=== PATIENT | male | born 1930 | race Caucasian/White ===

== ENCOUNTER 2018-04-10 10:06 | Inpatient (IN) | payer MEDICARE, OTHER ==
[~2018-04-10] VITALS: Ht 180.3 cm; Wt 84.8 kg
[~2018-04-10 10:06] MED LIST: APIX5TAB3 PO; ASPI-611 PO; ATOR40TA71 PO; DILT30TA34 PO; MAGN400T6 PO; METF-437 PO; POTA20TA10 PO; PYRI60TA PO; VIT1CAPS46 PO
[2018-04-10] MEDS ORDERED: aspirin 81mg tab.chew PO ONE (10:35)
[2018-04-10 10:55] LABS: BASOPHILS # (AUTO) 0.1 X10'3 (0-0.2); BASOPHILS % (AUTO) 1.9 % (0-1); EOSINOPHILS # (AUTO) 0.2 X10'3 (0-0.9); HEMATOCRIT 40.1 % (42.0-52.0); HEMOGLOBIN 13.5 g/dl (14.0-17.9); LYMPHOCYTES # (AUTO) 0.7 X10'3 (1.1-4.8); LYMPHOCYTES % (AUTO) 12.2 % (21-51); MEAN CORPUSCULAR HEMOGLOBIN 31.9 PG (27.0-31.0); MEAN CORPUSCULAR HGB CONC 33.6 % (33.0-36.5); MEAN CORPUSCULAR VOLUME 94.9 FL (78-98); MEAN PLATELET VOLUME 7.9 FL (7.4-10.4); MONOCYTES # (AUTO) 0.4 X10'3 (0-0.9); MONOCYTES % (AUTO) 7.3 % (2-12); NEUTROPHILS # (AUTO) 4.5 X10'3 (1.8-7.7); NEUTROPHILS % (AUTO) 75.6 % (42-75); PLATELET COUNT 220 X10'3 (140-440); RED BLOOD COUNT 4.22 X10'6 (4.70-6.10); RED CELL DISTRIBUTION WIDTH 12.9 % (11.5-14.5); WHITE BLOOD COUNT 5.9 X10'3 (4.5-11.0)
[2018-04-10 11:07] LABS: INR 1.1 INR; PROTHROMBIN TIME 11.4 SECONDS (9.0-12.0)
[2018-04-10 11:17] LABS: ALANINE AMINOTRANSFERASE 30 U/L (12-78); ALBUMIN 3.7 G/DL (3.4-5.0); ALBUMIN/GLOBULIN RATIO 1.4 (1.1-1.5); ALKALINE PHOSPHATASE 73 IU/L (46-116); ANION GAP 13 (8-16); ASPARTATE AMINO TRANSFERASE 17 U/L (10-37); BLOOD UREA NITROGEN 10 MG/DL (7-18); BUN/CREATININE RATIO 11.1 (5.4-32.0); CALCIUM 8.5 MG/DL (8.5-10.1); CHLORIDE 105 MMOL/L (99-107); GLUCOSE 228 MG/DL (70-104); POTASSIUM 3.9 MMOL/L (3.5-5.1); SODIUM 141 MMOL/L (135-145); TOTAL CARBON DIOXIDE 23.3 MMOL/L (24-32); TOTAL PROTEIN 6.4 G/DL (6.4-8.2); eGFR 80 ML/MIN
[2018-04-10] MEDS ORDERED: furosemide 10 MG/1 ML 10ml inj IV ONE (11:50)
[2018-04-10] MEDS ORDERED: azithromycin/NS 500mg/250ml 250 ML IV ONE (11:50)
[2018-04-10] MEDS ORDERED: CefTRIAXone 2gm/D5W 50ml 50 ML IV ONE (11:50)
[2018-04-10] MEDS ORDERED: ondansetron/PF 4mg/2ml inj IV PRN (12:45)
[2018-04-10] MEDS ORDERED: magnesium 4gm in 100ml NS 100 ML IV PRN (12:45)
[2018-04-10] MEDS ORDERED: magnesium Cl slow-release 64mg tablet PO PRN (12:45)
[2018-04-10] MEDS ORDERED: acetaminophen 325mg tablet PO PRN (12:45)
--- NOTE | 2018-04-10 15:27 | NUR ---
Pt. awaiting room assignment. hyperbaric technician here to talk with pt. prior to doing ECHO.
[2018-04-10] MEDS ORDERED: insulin Lispro (HumaLOG) vial - multi-dose SQ SCH (16:15)
[2018-04-10] MEDS ORDERED: MESSAGE TO PHARMACY PO ONE (16:15)
[2018-04-10] MEDS ORDERED: dextrose 50%-water 50ml dispensing syringe IV PRN ×2 (16:15)
[2018-04-10] MEDS ORDERED: dextrose ORAL solution 15 GM/59 ML bottle PO PRN ×2 (16:15)
[2018-04-10] MEDS ORDERED: glucagon, human recombinant 1mg kit SUBCUT PRN (16:15)
[2018-04-10 16:30] VITALS: BP 161/99
--- NOTE | 2018-04-10 17:56 | NUR ---
RECD CALL FROM TELE. PT HAD 4 BEAT RUN V TACH. NOTIFIED [address] DORADO VIA PAGE.
--- NOTE | 2018-04-10 18:12 | NUR ---
Problems reprioritized. Patient report given, questions answered & plan of care reviewed with MIKI AVALOS.
--- NOTE | 2018-04-10 18:12 | NUR ---
DR DORADO STATES TO MONITOR PT PT IS NONSYMPTOMATIC AT THIS TIME
--- NOTE | 2018-04-10 18:30 | NUR ---
Patient in room IZABEL 345. I have received report from NITHIN and had the opportunity to ask questions and assume patient care.
[2018-04-10 19:00] VITALS: BP 160/86
[2018-04-10] MEDS ORDERED: heparin, porcine 5000 units/ml vial SQ SCH (20:00)
[2018-04-10] MEDS ORDERED: insulin glargine (Lantus) pen - multi-dose SQ SCH (21:00)
[2018-04-10] MEDS: apixaban 5mg tablet PO SCH (21:01)
[2018-04-10] MEDS: pyridostigmine br 60mg tablet PO SCH (21:02)
[2018-04-10] MEDS: diltiazem 30mg tablet PO SCH (21:02)
[2018-04-10 23:06] LABS: MAGNESIUM 1.7 MG/DL (1.5-2.4)
[2018-04-11] VITALS: BP 137/83
[2018-04-11 03:00] VITALS: BP 137/83
[2018-04-11] MEDS: diltiazem 30mg tablet PO SCH ×3 (03:03→15:09)
[2018-04-11 05:15] LABS: BASOPHILS % (AUTO) 0.6 % (0-1); EOSINOPHILS # (AUTO) 0.2 X10'3 (0-0.9); EOSINOPHILS % (AUTO) 3.9 % (0-6); HEMATOCRIT 40.3 % (42.0-52.0); HEMOGLOBIN 13.4 g/dl (14.0-17.9); LYMPHOCYTES # (AUTO) 1.1 X10'3 (1.1-4.8); LYMPHOCYTES % (AUTO) 16.7 % (21-51); MEAN CORPUSCULAR HEMOGLOBIN 31.1 PG (27.0-31.0); MEAN CORPUSCULAR HGB CONC 33.1 % (33.0-36.5); MEAN CORPUSCULAR VOLUME 93.7 FL (78-98); MEAN PLATELET VOLUME 8.1 FL (7.4-10.4); MONOCYTES # (AUTO) 0.6 X10'3 (0-0.9); MONOCYTES % (AUTO) 8.8 % (2-12); NEUTROPHILS # (AUTO) 4.5 X10'3 (1.8-7.7); PLATELET COUNT 206 X10'3 (140-440); RED CELL DISTRIBUTION WIDTH 12.6 % (11.5-14.5); WHITE BLOOD COUNT 6.4 X10'3 (4.5-11.0)
[2018-04-11 05:24] LABS: ALBUMIN 3.5 G/DL (3.4-5.0); ANION GAP 10 (8-16); BLOOD UREA NITROGEN 11 MG/DL (7-18); BUN/CREATININE RATIO 13.8 (5.4-32.0); CALCIUM 8.5 MG/DL (8.5-10.1); CHLORIDE 108 MMOL/L (99-107); GLUCOSE 94 MG/DL (70-104); MAGNESIUM 1.7 MG/DL (1.5-2.4); POTASSIUM 3.4 MMOL/L (3.5-5.1); SODIUM 144 MMOL/L (135-145); eGFR > 90 ML/MIN
--- NOTE | 2018-04-11 06:30 | NUR ---
Patient in room IZABEL 345. I have received report from Franci AVALOS and had the opportunity to ask questions and assume patient care.
--- NOTE | 2018-04-11 06:56 | NUR ---
Problems reprioritized. Patient report given, questions answered & plan of care reviewed with RICKY.
[2018-04-11 07:14] VITALS: BP 141/79
[2018-04-11] MEDS: apixaban 5mg tablet PO SCH (07:28)
[2018-04-11] MEDS: pyridostigmine br 60mg tablet PO SCH ×2 (07:29→15:07)
[2018-04-11] MEDS ORDERED: CefTRIAXone/D5W-Rocephin 1gm 50 ML IV SCH (08:00)
[2018-04-11] MEDS ORDERED: azithromycin/NS 500mg/250ml 250 ML IV SCH (08:00)
[2018-04-11] MEDS ORDERED: atorvastatin 20mg tablet PO SCH (08:00)
[2018-04-11] MEDS ORDERED: aspirin 81mg tab.chew PO SCH (08:00)
[2018-04-11 11:54] VITALS: BP 116/68
--- NOTE | 2018-04-11 11:55 | NUR ---
Patient complained of low blood sugar. His blood sugar was 57 he was given dex 4 15 mg blood sugar was 128 after 15 minute. patient alert, awake stable. at bedside
[2018-04-11] MEDS ORDERED: potassium Cl 20 mEq SR tablet PO PRN ×2 (12:15)
[2018-04-11] MEDS ORDERED: AMOX-422 PO (13:40)
--- NOTE | 2018-04-11 15:05 | NUR ---
DM consult: A1C 7.8. Pt seen by FRANCISCA for written/verbal DM ed w/ RD contact information provided. Addendum: 04/11/18 at [address] Amended: Links added.
--- NOTE | 2018-04-11 15:50 | NUR ---
DISCHARGE HOME. ALL BELONGINGS SENT. SIVA ROBLES IN [place] CALLED FOR MEDICATIONS. AT BEDSIDE AND DROVE PATIENT HOME. PATIENT WHEEL CHAIR OUT WITH STAFF. IV REMOVED
[2018-04-11] MEDS ORDERED: lactobacillus rhamnosus 10,000 MMU CELLS/CAPSULE PO SCH (20:00)
== END 2018-04-11 15:55 | disposition home or self-care (01) | DRG 291 ==
LOC: ER 10:07 → ED HOLD 12:43 → SUR 3N 16:26
PROVIDERS: ADMIT Internal Medicine; ATTEND Internal Medicine
DX: I11.0 Hypertensive heart disease with heart failure (principal); J18.1 Lobar pneumonia, unspecified organism; I50.33 Acute on chronic diastolic (congestive) heart failure; E11.9 Type 2 diabetes mellitus without complications; E78.5 Hyperlipidemia, unspecified; I25.10 Atherosclerotic heart disease of native coronary artery without angina pectoris; G70.00 Myasthenia gravis without (acute) exacerbation; I35.0 Nonrheumatic aortic (valve) stenosis; I48.2 Chronic atrial fibrillation; Z66 Do not resuscitate; Z79.899 Other long term (current) drug therapy; Z79.82 Long term (current) use of aspirin; Z79.01 Long term (current) use of anticoagulants; Z79.84 Long term (current) use of oral hypoglycemic drugs; Z83.3 Family history of diabetes mellitus
CPT/HCPCS: 36415; 71045; 80048; 80053; 82948; 83036; 83735; 83880; 84484; 85025; 85610; 87070; 87502; 87503; 93005; 93306; 94760; 96365; 96375; 97161; 99285; G0378; J0456; J0696; J1815; J1940

== ENCOUNTER 2018-05-08 08:47 | Inpatient (IN) | payer MEDICARE, OTHER | END 2018-05-10 17:05 | disposition home or self-care (01) | LOC: ER 08:47 → ED HOLD 11:14 → SUR 3N 12:50 | DX: R06.02 Shortness of breath (principal); I50.21 Acute systolic (congestive) heart failure; E78.5 Hyperlipidemia, unspecified; I48.2 Chronic atrial fibrillation; E87.6 Hypokalemia; I48.0 Paroxysmal atrial fibrillation; I11.0 Hypertensive heart disease with heart failure ==

== ENCOUNTER 2018-07-11 08:43 | Inpatient (IN) | payer MEDICARE, OTHER ==
[~2018-07-11] VITALS: Ht 365.8 cm; Wt 85.0 kg
[~2018-07-11 08:43] MED LIST changes: +ALBU2.5V12 NEB; -DILT30TA34 PO; +FURO-150 PO; +LEVO500T2 PO; +OMEP20CA10 PO; -POTA20TA10 PO
[2018-07-11 09:23] LABS: BASOPHILS % (AUTO) 0.9 % (0-1); EOSINOPHILS # (AUTO) 0.1 X10'3 (0-0.9); EOSINOPHILS % (AUTO) 1.4 % (0-6); HEMATOCRIT 42.2 % (42.0-52.0); HEMOGLOBIN 14.3 g/dl (14.0-17.9); LYMPHOCYTES # (AUTO) 0.6 X10'3 (1.1-4.8); LYMPHOCYTES % (AUTO) 11.7 % (21-51); MEAN CORPUSCULAR HEMOGLOBIN 30.2 PG (27.0-31.0); MEAN CORPUSCULAR VOLUME 88.9 FL (78-98); MEAN PLATELET VOLUME 8.1 FL (7.4-10.4); MONOCYTES # (AUTO) 0.4 X10'3 (0-0.9); MONOCYTES % (AUTO) 7.3 % (2-12); NEUTROPHILS # (AUTO) 4.3 X10'3 (1.8-7.7); NEUTROPHILS % (AUTO) 78.7 % (42-75); PLATELET COUNT 189 X10'3 (140-440); RED BLOOD COUNT 4.75 X10'6 (4.70-6.10); RED CELL DISTRIBUTION WIDTH 13.9 % (11.5-14.5); WHITE BLOOD COUNT 5.5 X10'3 (4.5-11.0)
[2018-07-11 09:37] LABS: ALANINE AMINOTRANSFERASE 26 U/L (12-78); ALBUMIN/GLOBULIN RATIO 1.4 (1.1-1.5); ALKALINE PHOSPHATASE 71 IU/L (46-116); ANION GAP 8 (8-16); ASPARTATE AMINO TRANSFERASE 19 U/L (10-37); BLOOD UREA NITROGEN 15 MG/DL (7-18); BUN/CREATININE RATIO 18.5 (5.4-32.0); CALCIUM 8.9 MG/DL (8.5-10.1); CHLORIDE 105 MMOL/L (99-107); CREATININE 0.81 MG/DL (0.60-1.10); GLUCOSE 182 MG/DL (70-104); POTASSIUM 3.9 MMOL/L (3.5-5.1); SODIUM 138 MMOL/L (135-145); TOTAL CARBON DIOXIDE 25.3 MMOL/L (24-32); TOTAL PROTEIN 6.8 G/DL (6.4-8.2); eGFR 90 ML/MIN
[2018-07-11] MEDS ORDERED: famotidine/PF 10 mg/ml inj IV ONE (09:50)
[2018-07-11] MEDS ORDERED: mag hydrox/Alum hydrox/simeth 30ml oral suspension PO ONE (09:50)
[2018-07-11] MEDS ORDERED: LIDOcaine Viscous 15ml cup MM PRN (09:50)
[2018-07-11] MEDS ORDERED: ondansetron/PF 4mg/2ml inj IV ONE (09:50)
[2018-07-11] MEDS ORDERED: pantoprazole 40 MG vial IV ONE (09:50)
[2018-07-11] MEDS ORDERED: sucralfate 1gm/10ml UD suspension PO SCH (09:50)
[2018-07-11] MEDS ORDERED: sucralfate 1gm/10ml UD suspension PO ONE (09:50)
[2018-07-11] MEDS ORDERED: heparin 25,000 UNIT/250ml bag 250 ML IV SCH (10:17)
[2018-07-11] MEDS ORDERED: aspirin 81mg tab.chew PO ONE (10:20)
[2018-07-11] MEDS ORDERED: heparin 10,000 units/1 ML INJ IV ONE ×2 (10:20→10:25)
[2018-07-11] MEDS ORDERED: heparin 10,000 units/1 ML INJ IV PRN ×2 (10:20→16:30)
[2018-07-11 10:42] LABS: INR 1.1 INR; PARTIAL THROMBOPLASTIN TIME 29 SECONDS (22-32)
[2018-07-11] MEDS ORDERED: magnesium Cl slow-release 64mg tablet PO PRN (10:45)
[2018-07-11] MEDS ORDERED: morphine 4 MG/ML inj SYRINge IV PRN ×2 (10:45)
[2018-07-11] MEDS ORDERED: mag hydrox/Alum hydrox/simeth 30ml oral suspension PO PRN (10:45)
[2018-07-11] MEDS ORDERED: potassium Cl 20 mEq SR tablet PO PRN ×2 (10:45)
[2018-07-11] MEDS ORDERED: magnesium hydroxide 30ml (MOM) UD suspension PO PRN (10:45)
[2018-07-11] MEDS ORDERED: ondansetron/PF 4mg/2ml inj IV PRN (10:45)
[2018-07-11] MEDS ORDERED: magnesium 2GM in 50ml NS 50 ML IV PRN (10:45)
[2018-07-11] MEDS ORDERED: acetaminophen 325mg tablet PO PRN (10:45)
[2018-07-11] MEDS ORDERED: magnesium 4gm in 100ml NS 100 ML IV PRN (10:45)
[2018-07-11] MEDS ORDERED: potassium Cl 40MEQ/NS 500ml 500 ML IV PRN ×2 (10:45)
[2018-07-11] MEDS ORDERED: metoprolol tartrate 1mg/ml inj IV PRN (10:50)
[2018-07-11] MEDS ORDERED: aminophylline 250mg/10ml inj. IV PRN (10:50)
[2018-07-11] MEDS ORDERED: nitroGLYCERIN 0.4mg SUBLingual tab SL PRN ×2 (10:50)
[2018-07-11] MEDS ORDERED: glucagon, human recombinant 1mg kit SUBCUT PRN (10:50)
[2018-07-11] MEDS ORDERED: MESSAGE TO PHARMACY PO ONE (10:50)
[2018-07-11] MEDS ORDERED: insulin Lispro (HumaLOG) vial - multi-dose SQ SCH (10:50)
[2018-07-11] MEDS ORDERED: dextrose 50%-water 50ml dispensing syringe IV PRN ×2 (10:50)
[2018-07-11] MEDS ORDERED: dextrose ORAL solution 15 GM/59 ML bottle PO PRN ×2 (10:50)
[2018-07-11] MEDS ORDERED: regadenoson 0.4mg/5ml syringe IV ONE (10:50)
--- NOTE | 2018-07-11 11:30 | NUR ---
Pt received medication Carafate 1gm PO @ 0952, med did not scan.
[2018-07-11 11:36] LABS: HEMOGLOBIN A1C 8.1 % (4.5-6.2)
[2018-07-11] MEDS ORDERED: DILT30TA3 PO (11:39)
[2018-07-11] MEDS: metoprolol tartrate 12.5mg (1/2 tablet) PO SCH ×2 (11:50→21:05)
[2018-07-11] MEDS: sucralfate 1gm/10ml UD suspension PO SCH ×3 (11:53→21:04)
[2018-07-11 14:34] VITALS: BP 137/89
[2018-07-11] MEDS ORDERED: LINA5TAB4 PO (15:10)
[2018-07-11] MEDS ORDERED: MAGN400T6 PO (15:18)
--- NOTE | 2018-07-11 16:20 | NUR ---
INFORMED DR. HURLEY REGARDING TROPONIN OF 0.86. PER DR. HURLEY PATIENT IS TO START ON HEPARIN DRIP, HOLD ELIQUIS, AND THAT HE CALLED AND LEFT A MESSAGE WITH COKE CRANE OPERATOR DR. APONTE. PATIENT CURRENTLY SAYING CHEST PAIN IS DULL AND 2/10.
[2018-07-11] MEDS ORDERED: atorvastatin 20mg tablet PO SCH (16:43)
[2018-07-11] MEDS: heparin 25,000 UNIT/250ml bag 250 ML IV SCH ×2 (17:21→23:56)
[2018-07-11 17:39] LABS: INR 1.1 INR
[2018-07-11 18:00] VITALS: BP 151/98
--- NOTE | 2018-07-11 18:00 | NUR ---
Patient in room MED 315. I have received report from Molly AVALOS and had the opportunity to ask questions and assume patient care.
--- NOTE | 2018-07-11 18:00 | NUR ---
Patient in room MED 315. I have received report from Molly AVALOS and had the opportunity to ask questions and assume patient care.
[2018-07-11] MEDS ORDERED: apixaban 5mg tablet PO SCH (20:00)
[2018-07-11] MEDS: docusate sod 100mg capsule PO SCH (21:04)
[2018-07-11] MEDS: pantoprazole 40 MG vial IV SCH (21:04)
[2018-07-11] MEDS: atorvastatin 20mg tablet PO SCH (21:04)
--- NOTE | 2018-07-11 21:17 | NUR ---
paged hospitalist: MESSAGE: pt. Najera Wade room 315 ACCE [id number] pt's 12 hr trop 1.52, up from 0.86, pt currently on heparin gtt and awaiting cardiac consult. VSS and pt asymptomatic, no EKG changes. please call if any new orders need to be added, thanks
[2018-07-11] MEDS: pyridostigmine br 60mg tablet PO SCH (21:43)
[2018-07-11] MEDS: insulin glargine (Lantus) pen - multi-dose SQ SCH (21:48)
[2018-07-11 22:00] VITALS: BP 158/93
[2018-07-12] VITALS (11 sets, daily range): BP systolic 117–165; BP diastolic 68–109
[2018-07-12 03:45] LABS: BASOPHILS # (AUTO) 0.1 X10'3 (0-0.2); BASOPHILS % (AUTO) 0.9 % (0-1); EOSINOPHILS # (AUTO) 0.1 X10'3 (0-0.9); EOSINOPHILS % (AUTO) 1.9 % (0-6); HEMATOCRIT 39.9 % (42.0-52.0); HEMOGLOBIN 13.4 g/dl (14.0-17.9); LYMPHOCYTES # (AUTO) 1.2 X10'3 (1.1-4.8); LYMPHOCYTES % (AUTO) 19.3 % (21-51); MEAN CORPUSCULAR HEMOGLOBIN 29.8 PG (27.0-31.0); MEAN CORPUSCULAR HGB CONC 33.6 g/dL (33.0-36.5); MEAN CORPUSCULAR VOLUME 88.6 FL (78-98); MEAN PLATELET VOLUME 8.4 FL (7.4-10.4); MONOCYTES # (AUTO) 0.6 X10'3 (0-0.9); MONOCYTES % (AUTO) 8.9 % (2-12); NEUTROPHILS # (AUTO) 4.3 X10'3 (1.8-7.7); PLATELET COUNT 177 X10'3 (140-440); RED CELL DISTRIBUTION WIDTH 13.8 % (11.5-14.5); WHITE BLOOD COUNT 6.3 X10'3 (4.5-11.0)
[2018-07-12 03:51] LABS: ALANINE AMINOTRANSFERASE 23 U/L (12-78); ALBUMIN 3.4 G/DL (3.4-5.0); ALBUMIN/GLOBULIN RATIO 1.4 (1.1-1.5); ALKALINE PHOSPHATASE 60 IU/L (46-116); ANION GAP 6 (8-16); ASPARTATE AMINO TRANSFERASE 23 U/L (10-37); BILIRUBIN,TOTAL 0.6 MG/DL (0.1-1.0); BLOOD UREA NITROGEN 12 MG/DL (7-18); BUN/CREATININE RATIO 15.2 (5.4-32.0); CALCIUM 8.5 MG/DL (8.5-10.1); CHLORIDE 109 MMOL/L (99-107); CREATININE 0.79 MG/DL (0.60-1.10); GLUCOSE 132 MG/DL (70-104); POTASSIUM 3.9 MMOL/L (3.5-5.1); SODIUM 142 MMOL/L (135-145); TOTAL CARBON DIOXIDE 27.3 MMOL/L (24-32); TOTAL PROTEIN 5.9 G/DL (6.4-8.2); eGFR > 90 ML/MIN
[2018-07-12 03:55] LABS: CHOL/HDL RATIO 3.1 (0.00-4.99); CHOLESTEROL 121 MG/DL (0-200); HDL CHOLESTEROL 39 MG/DL (35-60); LDL CHOLESTEROL 80 MG/DL (50-100); MAGNESIUM 2.1 MG/DL (1.5-2.4); TRIGLYCERIDES 42 MG/DL (20-135)
[2018-07-12 03:59] LABS: TROPONIN I 2.68 NG/ML (0.0-0.05)
--- NOTE | 2018-07-12 04:20 | NUR ---
paged hospitalist: MESSAGE: pt: Wade Najera room 315 ACCE unit 8263 pt trop now at 2.68, up from 1.52, currently on heparin gtt. pt asymptomatic, VSS. please advise
--- NOTE | 2018-07-12 06:42 | NUR ---
Problems reprioritized. Patient report given, questions answered & plan of care reviewed with Art RN.
[2018-07-12] MEDS: K and/or MAG REPLACEMENT MC SCH (08:00)
[2018-07-12] MEDS: magnesium oxide 400mg tablet PO SCH (08:31)
[2018-07-12] MEDS: metoprolol tartrate 25mg tablet PO SCH ×2 (08:31→20:22)
[2018-07-12] MEDS: furosemide 20MG tablet PO SCH (08:32)
[2018-07-12] MEDS: aspirin 81mg tablet.DR PO SCH (08:32)
[2018-07-12] MEDS: docusate sod 100mg capsule PO SCH ×2 (08:32→20:21)
[2018-07-12] MEDS: pyridostigmine br 60mg tablet PO SCH ×3 (08:32→20:21)
[2018-07-12] MEDS: pantoprazole 40 MG vial IV SCH (08:43)
[2018-07-12] MEDS: sucralfate 1gm/10ml UD suspension PO SCH ×2 (08:43→11:00)
--- NOTE | 2018-07-12 12:03 | NUR ---
Hep gtt decreased to 800
--- NOTE | 2018-07-12 16:00 | NUR ---
PAGER ID: [phone] MESSAGE: RE: pt Wade Najera, in 315 trop is 1.86. Pt is scheduled for cath this afternoon. Art, [id number]
--- NOTE | 2018-07-12 16:24 | NUR ---
DM consult, A1C 8.1; patient needs written DM education handout with verbal review and referral to outpatient DM education class. Visited t bedside, patient was resting. Patient is on a heart healthy diet, noted unlisted diet order for "no chicken no turkey," has a good appetite and eating 100% of meals. Has h/o myasthenia gravis, cardiomyopathy with chronic systolic heart failure, GERD and hiatal hernia. Will attempt visit for education and bedside interview tomorrow. Recommend: 1. continue carb controlled, heart healthy diet 2. wt per rx Addendum: 07/12/18 at [address] Amended: Links added.
[2018-07-12] MEDS ORDERED: iohexol 350MG/ML 100ml bottle IV ONE ×2 (18:19→19:02)
[2018-07-12] MEDS ORDERED: midazolam 2 mg/2 ml injection ONE ×2 (18:19→19:04)
[2018-07-12] MEDS ORDERED: LIDOcaine 1% (10mg/ml)w/preservative injection 20ml MDV ONE (18:19)
[2018-07-12] MEDS ORDERED: fentaNYL/PF 50MCG/1 ML 2ML syringe ONE (18:20)
--- NOTE | 2018-07-12 18:20 | NUR ---
Patient in room MED 315. I have received report from Art and had the opportunity to ask questions and assume patient care.
[2018-07-12] MEDS ORDERED: heparin 1,000unit/ml 10ml vial 10 ML ONE (18:52)
[2018-07-12] MEDS ORDERED: ticagrelor 90mg tablet ONE (19:24)
[2018-07-12] MEDS ORDERED: tirofiban 5mg in NS 100mL 100 ML IV ONE (19:25)
[2018-07-12] MEDS ORDERED: OXAZEpam 15mg capsule PO PRN (20:05)
[2018-07-12] MEDS: atorvastatin 20mg tablet PO SCH (20:22)
[2018-07-12] MEDS: pantoprazole 40mg Tablet.DR PO SCH (20:22)
[2018-07-12] MEDS: insulin glargine (Lantus) pen - multi-dose SQ SCH (21:00)
[2018-07-12] MEDS: tirofiban 5mg in NS 100mL 100 ML IV SCH (22:11)
[2018-07-13 02:00] VITALS: BP 142/92
[2018-07-13] MEDS: tirofiban 5mg in NS 100mL 100 ML IV SCH ×3 (03:14→09:14)
[2018-07-13 05:42] LABS: BASOPHILS % (AUTO) 0.5 % (0-1); EOSINOPHILS % (AUTO) 0.7 % (0-6); HEMATOCRIT 41.2 % (42.0-52.0); HEMOGLOBIN 13.7 g/dl (14.0-17.9); LYMPHOCYTES # (AUTO) 0.8 X10'3 (1.1-4.8); LYMPHOCYTES % (AUTO) 11.7 % (21-51); MEAN CORPUSCULAR HEMOGLOBIN 29.7 PG (27.0-31.0); MEAN CORPUSCULAR HGB CONC 33.3 g/dL (33.0-36.5); MEAN CORPUSCULAR VOLUME 89.2 FL (78-98); MEAN PLATELET VOLUME 8.2 FL (7.4-10.4); MONOCYTES # (AUTO) 0.6 X10'3 (0-0.9); MONOCYTES % (AUTO) 8.8 % (2-12); NEUTROPHILS # (AUTO) 5.6 X10'3 (1.8-7.7); NEUTROPHILS % (AUTO) 78.3 % (42-75); PLATELET COUNT 183 X10'3 (140-440); RED BLOOD COUNT 4.62 X10'6 (4.70-6.10); RED CELL DISTRIBUTION WIDTH 14.1 % (11.5-14.5); WHITE BLOOD COUNT 7.1 X10'3 (4.5-11.0)
[2018-07-13 06:00] VITALS: BP 134/66
[2018-07-13 06:05] LABS: ALANINE AMINOTRANSFERASE 21 U/L (12-78); ALBUMIN 3.4 G/DL (3.4-5.0); ALBUMIN/GLOBULIN RATIO 1.3 (1.1-1.5); ALKALINE PHOSPHATASE 63 IU/L (46-116); ANION GAP 9 (8-16); ASPARTATE AMINO TRANSFERASE 19 U/L (10-37); BILIRUBIN,TOTAL 0.6 MG/DL (0.1-1.0); BLOOD UREA NITROGEN 14 MG/DL (7-18); BUN/CREATININE RATIO 20.9 (5.4-32.0); CALCIUM 8.8 MG/DL (8.5-10.1); CHLORIDE 107 MMOL/L (99-107); CHOLESTEROL 123 MG/DL (0-200); CREATININE 0.67 MG/DL (0.60-1.10); GLUCOSE 143 MG/DL (70-104); HDL CHOLESTEROL 41 MG/DL (35-60); LDL CHOLESTEROL 72 MG/DL (50-100); POTASSIUM 3.8 MMOL/L (3.5-5.1); SODIUM 141 MMOL/L (135-145); TOTAL CARBON DIOXIDE 24.9 MMOL/L (24-32); TOTAL PROTEIN 6.1 G/DL (6.4-8.2); TRIGLYCERIDES 62 MG/DL (20-135); eGFR > 90 ML/MIN
--- NOTE | 2018-07-13 06:15 | NUR ---
Problems reprioritized. Patient report given, questions answered & plan of care reviewed with Molly.
[2018-07-13] MEDS ORDERED: lisinopril 10 MG tablet PO SCH (08:00)
[2018-07-13] MEDS: K and/or MAG REPLACEMENT MC SCH (08:00)
[2018-07-13] MEDS: pantoprazole 40mg Tablet.DR PO SCH ×2 (09:09→20:39)
[2018-07-13] MEDS: pyridostigmine br 60mg tablet PO SCH ×3 (09:09→20:40)
--- NOTE | 2018-07-13 09:10 | NUR ---
WILLIAM SAXENA NP CALLED. NEW ORDER RECEIVED. STOP AGGRASTAT GTT. PATIENT MAY BE ABLE TO DISCHARGE LATER THIS AFTERNOON IF NO COMPLICATIONS AT GROIN SITE.
[2018-07-13] MEDS: metoprolol tartrate 25mg tablet PO SCH ×2 (09:11→20:39)
[2018-07-13] MEDS: aspirin 81mg tablet.DR PO SCH (09:11)
[2018-07-13] MEDS: docusate sod 100mg capsule PO SCH ×2 (09:11→20:36)
[2018-07-13] MEDS: ticagrelor 90mg tablet PO SCH ×2 (09:11→20:36)
[2018-07-13] MEDS: furosemide 20MG tablet PO SCH (09:11)
[2018-07-13] MEDS: magnesium oxide 400mg tablet PO SCH (09:11)
--- NOTE | 2018-07-13 11:20 | NUR ---
reassessment: Pt s/p cath EF 45-50% PO 100% meals meeting needs. LBM 07/10. Pt unable to wake during RD visit; written DM ed w/ RD contact information left at bedside. Current BMI inaccurate w/ ht error of 144in; BMI actually 30 given current wt. No nutrition concerns at this time. Recommend: 1. continue carb controlled, heart healthy diet 2. wt per rx Addendum: 07/13/18 at [address] Amended: Links added.
[2018-07-13 12:00] VITALS: BP 94/69
[2018-07-13 15:00] VITALS: BP 108/72
--- NOTE | 2018-07-13 15:29 | NUR ---
PATIENT'S GROIN SITE HAS NOT CHANGED SINCE THIS AM. PATIENT AND HIS FAMILY VERBALIZE THAT THEY PREFER TO WAIT UNTIL TOMORROW FOR DISCHARGE.
[2018-07-13] MEDS: potassium Cl 20 mEq SR tablet PO SCH (16:49)
--- NOTE | 2018-07-13 18:00 | NUR ---
Patient in room MED 315. I have received report from ROBBIE Barnes and had the opportunity to ask questions and assume patient care.
[2018-07-13 19:00] VITALS: BP 102/59
[2018-07-13] MEDS: atorvastatin 20mg tablet PO SCH (20:40)
[2018-07-13] MEDS: insulin glargine (Lantus) pen - multi-dose SQ SCH (21:00)
[2018-07-13 22:00] VITALS: BP 126/72
[2018-07-14 02:00] VITALS: BP 112/87
[2018-07-14 06:00] VITALS: BP 116/90
[2018-07-14 06:12] LABS: BASOPHILS % (AUTO) 0.4 % (0-1); EOSINOPHILS # (AUTO) 0.1 X10'3 (0-0.9); EOSINOPHILS % (AUTO) 1.8 % (0-6); HEMATOCRIT 41.2 % (42.0-52.0); HEMOGLOBIN 13.8 g/dl (14.0-17.9); LYMPHOCYTES # (AUTO) 0.9 X10'3 (1.1-4.8); LYMPHOCYTES % (AUTO) 12.9 % (21-51); MEAN CORPUSCULAR HEMOGLOBIN 29.6 PG (27.0-31.0); MEAN CORPUSCULAR HGB CONC 33.4 g/dL (33.0-36.5); MEAN CORPUSCULAR VOLUME 88.7 FL (78-98); MEAN PLATELET VOLUME 8.3 FL (7.4-10.4); MONOCYTES # (AUTO) 0.7 X10'3 (0-0.9); MONOCYTES % (AUTO) 9.8 % (2-12); NEUTROPHILS # (AUTO) 5.2 X10'3 (1.8-7.7); NEUTROPHILS % (AUTO) 75.1 % (42-75); PLATELET COUNT 178 X10'3 (140-440); RED BLOOD COUNT 4.65 X10'6 (4.70-6.10)
--- NOTE | 2018-07-14 06:15 | NUR ---
Problems reprioritized. Patient report given, questions answered & plan of care reviewed with ROBBIE Appiah.
[2018-07-14 06:16] LABS: ALANINE AMINOTRANSFERASE 19 U/L (12-78); ALBUMIN 3.3 G/DL (3.4-5.0); ALBUMIN/GLOBULIN RATIO 1.3 (1.1-1.5); ALKALINE PHOSPHATASE 61 IU/L (46-116); ANION GAP 10 (8-16); ASPARTATE AMINO TRANSFERASE 16 U/L (10-37); BILIRUBIN,TOTAL 0.7 MG/DL (0.1-1.0); BLOOD UREA NITROGEN 20 MG/DL (7-18); BUN/CREATININE RATIO 21.7 (5.4-32.0); CALCIUM 8.9 MG/DL (8.5-10.1); CHLORIDE 107 MMOL/L (99-107); CREATININE 0.92 MG/DL (0.60-1.10); GLUCOSE 144 MG/DL (70-104); POTASSIUM 4.1 MMOL/L (3.5-5.1); SODIUM 142 MMOL/L (135-145); TOTAL CARBON DIOXIDE 25.2 MMOL/L (24-32); TOTAL PROTEIN 5.9 G/DL (6.4-8.2); eGFR 78 ML/MIN
[2018-07-14] MEDS ORDERED: lisinopril 2.5mg tablet PO SCH (08:00)
[2018-07-14] MEDS: K and/or MAG REPLACEMENT MC SCH (08:00)
[2018-07-14] MEDS: magnesium oxide 400mg tablet PO SCH (08:48)
[2018-07-14] MEDS: metoprolol tartrate 25mg tablet PO SCH (08:48)
[2018-07-14] MEDS: aspirin 81mg tablet.DR PO SCH (08:48)
[2018-07-14] MEDS: ticagrelor 90mg tablet PO SCH (08:49)
[2018-07-14] MEDS: pyridostigmine br 60mg tablet PO SCH ×2 (08:49→12:22)
[2018-07-14] MEDS: pantoprazole 40mg Tablet.DR PO SCH (08:49)
[2018-07-14] MEDS: potassium Cl 20 mEq SR tablet PO SCH (08:49)
[2018-07-14] MEDS: furosemide 20MG tablet PO SCH (08:49)
[2018-07-14] MEDS: docusate sod 100mg capsule PO SCH (08:53)
--- NOTE | 2018-07-14 10:01 | NUR ---
PATIENT AND UNABLE TO RECALL EXACT APPOINTMENT DATE AND TIME. THEY BOTH STATED DIABETES FOLLOW-UP APPT WAS RESCHEDULED FOR THE END OF THIS MONTH. PATIENT WAS SEEING DR. CARRASCO, BUT HE HAS RELOCATED TO [place]. [facility] ASSIGNED A NURSE PRACTIONER TO MANAGE PATIENT'S DIABETES, PATIENT HAS YET TO HAVE HIS FIRST APPOINTMENT WITH THEM. PATIENT AND DECLINED TO HAVE FOLLOW-UP APPOINTMENT SCHEDULED. THEY WILL CALL TO VERIFY APPOINTMENT DATE/TIME Addendum: 07/14/18 at 1004 by Elvira Tanner RN Amended: Links added.
[2018-07-14] MEDS ORDERED: apixaban 5mg tablet PO SCH (10:45)
[2018-07-14] MEDS ORDERED: METO25TA6 PO (10:52)
[2018-07-14] MEDS ORDERED: NITR0.4T51 SL (10:52)
[2018-07-14] MEDS ORDERED: ASPI-1071 PO (10:52)
[2018-07-14] MEDS ORDERED: LISI2.5T2 PO (10:52)
[2018-07-14] MEDS ORDERED: TICA90TA PO (10:52)
[2018-07-14] MEDS ORDERED: PANT40TA4 PO (10:52)
[2018-07-14 11:00] VITALS: BP 138/94
--- NOTE | 2018-07-14 11:13 | NUR ---
PATIENT DECLINED TO HAVE FOLLOW-UP APPOINTMENT MADE. DR. APONTE'S OFFICE NUMBER PROVIDED. PATIENT AND WILL CALL TO SCHEDULE FOLLOW-UP APPT. Addendum: 07/14/18 at 1114 by Elvira Tanner RN Amended: Links added.
--- NOTE | 2018-07-14 12:16 | NUR ---
[facility] AT BEDSIDE, DELIVERING PRESCRIPTIONS
--- NOTE | 2018-07-14 12:45 | NUR ---
pt provided with discharge education and follow up care and appointments; all questions answered. IV removed; cannula intact. Pt removed from cardiac monitoring. pt refused wheel chair and ambulated downstairs accompanied by and all belongings.
[2018-07-31] MEDS ORDERED: VIT1CAPS9 PO (10:42)
[2018-07-31] MEDS ORDERED: CEPH-571 PO (10:53)
== END 2018-07-14 12:45 | disposition home health service (06) | DRG 246 ==
LOC: ER 08:44 → ED HOLD 10:46 → MED 3N 14:07
PROVIDERS: ADMIT Internal Medicine; ATTEND Internal Medicine
PROC: 4A023N7 Measurement of Cardiac Sampling and Pressure, Left Heart, Percutaneous Approach (ICD-10-PCS; principal; 2018-07-12)
PROC: 027035Z Dilation of Coronary Artery, One Artery with Two Drug-eluting Intraluminal Devices, Percutaneous Approach (ICD-10-PCS; 2018-07-12)
PROC: B2111ZZ Fluoroscopy of Multiple Coronary Arteries using Low Osmolar Contrast (ICD-10-PCS; 2018-07-12)
DX: I21.4 Non-ST elevation (NSTEMI) myocardial infarction (principal); I50.43 Acute on chronic combined systolic (congestive) and diastolic (congestive) heart failure; I42.9 Cardiomyopathy, unspecified; I11.0 Hypertensive heart disease with heart failure; E78.00 Pure hypercholesterolemia, unspecified; E78.5 Hyperlipidemia, unspecified; E11.65 Type 2 diabetes mellitus with hyperglycemia; I25.10 Atherosclerotic heart disease of native coronary artery without angina pectoris; I35.0 Nonrheumatic aortic (valve) stenosis; R58 Hemorrhage, not elsewhere classified; I48.2 Chronic atrial fibrillation; K21.9 Gastro-esophageal reflux disease without esophagitis; K44.9 Diaphragmatic hernia without obstruction or gangrene; E11.42 Type 2 diabetes mellitus with diabetic polyneuropathy; G47.33 Obstructive sleep apnea (adult) (pediatric); G70.00 Myasthenia gravis without (acute) exacerbation; Z79.01 Long term (current) use of anticoagulants; Z79.899 Other long term (current) drug therapy; Z85.46 Personal history of malignant neoplasm of prostate; Z83.3 Family history of diabetes mellitus
CPT/HCPCS: 93306; 93458; 96374; 96375; 99285; C9600; 36415; 71045; 80053; 80061; 82948; 83036; 83735; 84484; 85025; 85610; 85730; 87070; 93005; 99152; 99153; A4620; A6257; C1725; C1760; C1769; C1874; C9113; G0378; J1644; J1815; J2001; J2250; J2405; J3010; J3246; J3490; J7030; Q9967

== ENCOUNTER 2019-05-25 08:10 | Inpatient (IN) | payer MEDICARE, OTHER ==
[~2019-05-25] VITALS: Ht 182.9 cm; Wt 81.8 kg
[~2019-05-25 08:10] MED LIST changes: -ALBU2.5V12 NEB; +ASPI-1265 PO; -ASPI-611 PO; +BETA1TAB20 PO; -LEVO500T2 PO; +LINA5TAB4 PO; +LISI2.5T2 PO; +MAGN400C PO; -MAGN400T6 PO; -METF-437 PO; +METO25TA6 PO; +NITR0.4T51 SL; -OMEP20CA10 PO; +PANT40TA4 PO; -VIT1CAPS46 PO; +VIT1CAPS9 PO
[2019-05-25 09:00] LABS: BASOPHILS % (AUTO) 0.6 % (0-1); EOSINOPHILS % (AUTO) 0.8 % (0-6); HEMOGLOBIN 12.2 g/dl (14.0-17.9); LYMPHOCYTES # (AUTO) 0.3 X10'3 (1.1-4.8); LYMPHOCYTES % (AUTO) 4.5 % (21-51); MEAN CORPUSCULAR HEMOGLOBIN 29.5 PG (27.0-31.0); MEAN CORPUSCULAR VOLUME 86.9 FL (78-98); MEAN PLATELET VOLUME 7.6 FL (7.4-10.4); MONOCYTES # (AUTO) 0.7 X10'3 (0-0.9); MONOCYTES % (AUTO) 11.3 % (2-12); NEUTROPHILS % (AUTO) 82.8 % (42-75); PLATELET COUNT 157 X10'3 (140-440); RED BLOOD COUNT 4.15 X10'6 (4.70-6.10); RED CELL DISTRIBUTION WIDTH 15.4 % (11.5-14.5)
[2019-05-25 09:11] LABS: PARTIAL THROMBOPLASTIN TIME 29 SECONDS (22-32)
[2019-05-25 09:17] LABS: ALANINE AMINOTRANSFERASE 41 U/L (12-78); ALBUMIN 3.9 G/DL (3.4-5.0); ALBUMIN/GLOBULIN RATIO 1.5 (1.1-1.5); ALKALINE PHOSPHATASE 79 IU/L (46-116); ANION GAP 9 (8-16); ASPARTATE AMINO TRANSFERASE 30 U/L (10-37); BILIRUBIN,TOTAL 1.2 MG/DL (0.1-1.0); BLOOD UREA NITROGEN 10 MG/DL (7-18); BUN/CREATININE RATIO 13.7 (5.4-32.0); CALCIUM 8.5 MG/DL (8.5-10.1); CHLORIDE 105 MMOL/L (99-107); CREATININE 0.73 MG/DL (0.60-1.10); GLUCOSE 138 MG/DL (70-104); SODIUM 139 MMOL/L (135-145); TOTAL CARBON DIOXIDE 25.5 MMOL/L (24-32); TOTAL PROTEIN 6.5 G/DL (6.4-8.2); eGFR > 90 ML/MIN
--- NOTE | 2019-05-25 10:24 | NUR ---
neuro cart in room
--- NOTE | 2019-05-25 10:26 | NUR ---
vascular in the room
[2019-05-25] MEDS ORDERED: atorvastatin 20mg tablet PO STA (11:07)
[2019-05-25] MEDS ORDERED: magnesium 4gm in 100ml NS 100 ML IV PRN (11:10)
[2019-05-25] MEDS ORDERED: potassium Cl 20 mEq SR tablet PO PRN ×2 (11:10)
[2019-05-25] MEDS ORDERED: glucagon, human recombinant 1mg kit SUBCUT PRN (11:10)
[2019-05-25] MEDS ORDERED: magnesium 2GM in 50ml NS 50 ML IV PRN (11:10)
[2019-05-25] MEDS ORDERED: dextrose ORAL solution 15 GM/59 ML bottle PO PRN ×2 (11:10)
[2019-05-25] MEDS ORDERED: ondansetron/PF 4mg/2ml inj IV PRN (11:10)
[2019-05-25] MEDS ORDERED: acetaminophen 325mg tablet PO PRN ×2 (11:10)
[2019-05-25] MEDS ORDERED: morphine 2 MG/ML inj. syringe IV PRN ×2 (11:10)
[2019-05-25] MEDS ORDERED: acetaminophen 650mg rectal suppository RC PRN (11:10)
[2019-05-25] MEDS ORDERED: bisacodyl 10mg suppository rectal RC PRN (11:10)
[2019-05-25] MEDS ORDERED: magnesium hydroxide 30ml (MOM) UD suspension PO PRN (11:10)
[2019-05-25] MEDS ORDERED: MESSAGE TO PHARMACY PO ONE (11:10)
[2019-05-25] MEDS ORDERED: potassium CL 10mEq/100ml bag 100 ML IV PRN ×2 (11:10)
[2019-05-25] MEDS ORDERED: diphenhydrAMINE 25mg capsule PO PRN (11:10)
[2019-05-25] MEDS ORDERED: HYDROcodone/acetaminophen 10/325mg tab PO PRN (11:10)
[2019-05-25] MEDS ORDERED: mag hydrox/Alum hydrox/simeth 30ml oral suspension PO PRN (11:10)
[2019-05-25] MEDS ORDERED: dextrose 50%-water 50ml dispensing syringe IV PRN ×2 (11:10)
[2019-05-25] MEDS ORDERED: aspirin 325mg tablet PO ONE (11:10)
[2019-05-25] MEDS ORDERED: HYDROcodone/acetaminophen 5mg/325mg tablet PO PRN (11:10)
[2019-05-25] MEDS ORDERED: magnesium Cl slow-release 64mg tablet PO PRN (11:10)
[2019-05-25] MEDS ORDERED: insulin Lispro (HumaLOG) vial - multi-dose SQ SCH (11:10)
--- NOTE | 2019-05-25 11:25 | NUR ---
called for neuro consult [phone] Spoke to Edita
--- NOTE | 2019-05-25 11:38 | NUR ---
called MRI, spoke to Bina, she is aware that pt should go up to the floor room 4024B, she will make sure hes transported there
--- NOTE | 2019-05-25 11:49 | NUR ---
CALLED UP TO FLOOR AND SPOKE TO MAXIMUS MARR, HE IS AWARE THAT NEURO CONSULT WILL NEED TO BE REINITIATED, HE WILL PASS IT ON TO ROBBIE Tenorio WHO IS ON BREAK
[2019-05-25 12:01] LABS: C-REACTIVE PROTEIN 0.95 MG/DL (0.0-0.5)
[2019-05-25 12:20] VITALS: BP 184/93
[2019-05-25 13:18] LABS: HEMOGLOBIN A1C 7.5 % (4.5-6.2)
[2019-05-25 13:21] LABS: CHOL/HDL RATIO 3.1 (0.00-4.99); CHOLESTEROL 113 MG/DL (0-200); HDL CHOLESTEROL 37 MG/DL (35-60); LDL CHOLESTEROL 66 MG/DL (50-100); TRIGLYCERIDES 39 MG/DL (20-135)
[2019-05-25] MEDS: ampicillin/sulbac 3gm/NS 100ml 100 ML IV SCH ×2 (15:26→19:59)
[2019-05-25] MEDS: normal saline 1000ml 1,000 ML IV SCH (15:30)
[2019-05-25] MEDS ORDERED: CLOP75TA35 PO (16:00)
[2019-05-25] MEDS ORDERED: meclizine 12.5mg tablet PO PRN (17:40)
[2019-05-25 18:00] VITALS: BP 125/73
[2019-05-25] MEDS: K and/or MAG REPLACEMENT MC SCH (18:47)
[2019-05-25 20:00] VITALS: BP_SYST 143; BP_SYST 144; BP_SYST 150; BP_DIAS 77; BP_DIAS 79; BP_DIAS 84
[2019-05-25] MEDS ORDERED: insulin glargine (Lantus) pen - multi-dose SQ SCH (21:00)
[2019-05-25 22:00] VITALS: BP 143/79
[2019-05-26] MEDS: normal saline 1000ml 1,000 ML IV SCH ×2 (00:29→05:20)
[2019-05-26 02:00] VITALS: BP 157/93
[2019-05-26] MEDS: ampicillin/sulbac 3gm/NS 100ml 100 ML IV SCH ×3 (02:27→13:49)
[2019-05-26 06:00] VITALS: BP 150/88
--- NOTE | 2019-05-26 06:20 | NUR ---
Problems reprioritized. Patient report given, questions answered & plan of care reviewed with ROBBIE Maynard.
[2019-05-26 06:39] LABS: BASOPHILS % (AUTO) 0.4 % (0-1); EOSINOPHILS % (AUTO) 0.9 % (0-6); HEMATOCRIT 33.5 % (42.0-52.0); HEMOGLOBIN 11.4 g/dl (14.0-17.9); LYMPHOCYTES # (AUTO) 0.4 X10'3 (1.1-4.8); LYMPHOCYTES % (AUTO) 9.4 % (21-51); MEAN CORPUSCULAR HEMOGLOBIN 29.5 PG (27.0-31.0); MEAN CORPUSCULAR VOLUME 86.8 FL (78-98); MEAN PLATELET VOLUME 7.9 FL (7.4-10.4); MONOCYTES # (AUTO) 0.6 X10'3 (0-0.9); MONOCYTES % (AUTO) 12.8 % (2-12); NEUTROPHILS # (AUTO) 3.6 X10'3 (1.8-7.7); NEUTROPHILS % (AUTO) 76.5 % (42-75); PLATELET COUNT 139 X10'3 (140-440); RED BLOOD COUNT 3.86 X10'6 (4.70-6.10); RED CELL DISTRIBUTION WIDTH 15.1 % (11.5-14.5); WHITE BLOOD COUNT 4.6 X10'3 (4.5-11.0)
[2019-05-26 06:47] LABS: ALANINE AMINOTRANSFERASE 32 U/L (12-78); ALBUMIN 3.3 G/DL (3.4-5.0); ALBUMIN/GLOBULIN RATIO 1.3 (1.1-1.5); ALKALINE PHOSPHATASE 71 IU/L (46-116); ANION GAP 5 (8-16); ASPARTATE AMINO TRANSFERASE 21 U/L (10-37); BILIRUBIN,TOTAL 0.8 MG/DL (0.1-1.0); BLOOD UREA NITROGEN 10 MG/DL (7-18); BUN/CREATININE RATIO 15.4 (5.4-32.0); CALCIUM 8.2 MG/DL (8.5-10.1); CHLORIDE 109 MMOL/L (99-107); CHOL/HDL RATIO 2.9 (0.00-4.99); CHOLESTEROL 100 MG/DL (0-200); CREATININE 0.65 MG/DL (0.60-1.10); GLUCOSE 116 MG/DL (70-104); HDL CHOLESTEROL 34 MG/DL (35-60); LDL CHOLESTEROL 64 MG/DL (50-100); MAGNESIUM 1.7 MG/DL (1.5-2.4); PHOSPHORUS 3.1 MG/DL (2.3-4.5); POTASSIUM 3.5 MMOL/L (3.5-5.1); SODIUM 141 MMOL/L (135-145); TOTAL CARBON DIOXIDE 26.8 MMOL/L (24-32); TOTAL PROTEIN 5.9 G/DL (6.4-8.2); TRIGLYCERIDES 37 MG/DL (20-135); eGFR > 90 ML/MIN
--- NOTE | 2019-05-26 06:47 | NUR ---
Patient in room ORTHO 4024. I have received report from Antoinette Hernandez RN and had the opportunity to ask questions and assume patient care.
[2019-05-26] MEDS: K and/or MAG REPLACEMENT MC SCH (07:35)
[2019-05-26 08:00] VITALS: BP_SYST 158; BP_SYST 168; BP_SYST 172; BP_DIAS 105; BP_DIAS 118; BP_DIAS 98
[2019-05-26] MEDS ORDERED: atorvastatin 10mg tablet PO SCH (08:00)
[2019-05-26] MEDS ORDERED: aspirin 81mg tablet.DR PO SCH (08:00)
--- NOTE | 2019-05-26 08:51 | NUR ---
Caesar 8675 Re: Wade Najera Tele called Pt had a 4 beat run of VTACH Current BP 172/79 HR 99 Patient is asymptomatic in bed.
--- NOTE | 2019-05-26 09:28 | NUR ---
Not able to cover patients blood sugar. NO Humalog insulin stocked. Paged pharmacy. Will monitor for insulin to be restocked. Patient is level 2 with BS 120, Carbs 53. for breakfast.
[2019-05-26 10:00] VITALS: BP 177/93
[2019-05-26] MEDS ORDERED: lisinopril 2.5mg tablet PO SCH (10:00)
[2019-05-26] MEDS ORDERED: pantoprazole 40mg Tablet.DR PO SCH (10:00)
[2019-05-26] MEDS ORDERED: clopidogrel 75mg tablet PO SCH (10:00)
[2019-05-26] MEDS ORDERED: nitroGLYCERIN 0.4mg SUBLingual tab SL PRN (10:00)
[2019-05-26] MEDS ORDERED: furosemide 20MG tablet PO SCH (10:00)
[2019-05-26] MEDS ORDERED: metoprolol tartrate 50mg tablet PO ONE (10:05)
[2019-05-26 11:22] VITALS: BP_SYST 177
--- NOTE | 2019-05-26 11:47 | NUR ---
Student documentation: I have reviewed and agree with all interventions, assessments performed and documented by Tee Gonzalez. Student Medication Administration: For this medication-pass time frame, all medication were reviewed, dispensed, administered and documented per hospital policy by Tee Gonzalez.
[2019-05-26 11:57] LABS: CLARITY,URINE CLEAR (Clear); COLOR,URINE YELLOW (Yellow); GLUCOSE, URINE NEGATIVE (Neg); KETONES,URINE NEGATIVE (Neg); LEUKOCYTE ESTERASE ,URINE NEGATIVE (Neg); NITRITES, URINE NEGATIVE (Neg); OCCULT BLOOD,URINE NEGATIVE (Neg); PROTEIN,URINE NEGATIVE (Neg); UROBILINOGEN,URINE 0.2 E.U/dL (0.2-1.0)
[2019-05-26 12:00] LABS: UA COLLECTION TYPE NON-SPECIFIED
[2019-05-26] MEDS ORDERED: pyridostigmine br 60mg tablet PO SCH (13:00)
[2019-05-26] MEDS ORDERED: MECL-183 PO (15:31)
[2019-05-26] MEDS ORDERED: METO100T7 PO (15:35)
--- NOTE | 2019-05-26 15:36 | NUR ---
Caesar 5460 Re: Wade Najera Preliminaries carotids are negative.
--- NOTE | 2019-05-26 16:03 | NUR ---
DM consult: Pt with A1c 7.5 seen at bedside. Patient's A1c is down from 8.1 in July of last year. Pt reports he is seeing a new [facility] that is helping manage his diabetes which has been helpful and has made a positive impact. Pt provided with written DM education with referral to outpatient DM class. Pt denies questions at this time. RD contact information provided. Pt currently on a CHO controlled diet documented with 75-100% PO intake meeting nutrient needs. Pt endorses a good appetite and states he is getting full from meals. Pt denies food allergies, difficulty chewing/swallowing, or constipation/diarrhea. Will continue to follow. Addendum: 05/26/19 at [address] Amended: Links added.
--- NOTE | 2019-05-26 17:19 | NUR ---
Safe DC with spouse in personal vehicle. All personal items with patient.
[2019-05-26] MEDS ORDERED: beta-carotene(A) w/C & E + minerals tab PO SCH (20:00)
[2019-05-26] MEDS ORDERED: apixaban 5mg tablet PO SCH (20:00)
[2019-05-26] MEDS ORDERED: metoprolol tartrate 25mg tablet PO SCH (20:00)
[2019-05-27] MEDS ORDERED: magnesium oxide 400mg tablet PO SCH (08:00)
[2019-05-27] MEDS ORDERED: atorvastatin 20mg tablet PO SCH (08:00)
[2019-05-27] MEDS ORDERED: VIT1CAPS46 PO (13:58)
[2019-05-27] MEDS ORDERED: METO25TA6 PO (13:58)
[2019-05-27] MEDS ORDERED: AMIT-189 PO (14:34)
[2019-05-27] MEDS ORDERED: AMIT10TA6 PO (14:34)
[2019-05-27] MEDS ORDERED: NIAC500T7 PO (14:34)
[2019-05-27] MEDS ORDERED: METO100T7 PO (14:39)
--- NOTE | 2019-05-29 08:39 | NUR ---
case management DC follow up: pt has been readmitted on 05/27/2019
== END 2019-05-26 17:20 | disposition home health service (06) | DRG 149 ==
LOC: ER 08:11 → ED HOLD 11:09 → ORTHO 4S 12:20
PROVIDERS: ADMIT Family Medicine; ATTEND Family Medicine
DX: H81.10 Benign paroxysmal vertigo, unspecified ear (principal); I47.2 Ventricular tachycardia; L03.90 Cellulitis, unspecified; E78.00 Pure hypercholesterolemia, unspecified; E78.5 Hyperlipidemia, unspecified; G70.00 Myasthenia gravis without (acute) exacerbation; I10 Essential (primary) hypertension; I25.10 Atherosclerotic heart disease of native coronary artery without angina pectoris; K44.9 Diaphragmatic hernia without obstruction or gangrene; I35.0 Nonrheumatic aortic (valve) stenosis; X58.XXXA Exposure to other specified factors, initial encounter; E11.9 Type 2 diabetes mellitus without complications; I48.91 Unspecified atrial fibrillation; K21.9 Gastro-esophageal reflux disease without esophagitis; N40.0 Benign prostatic hyperplasia without lower urinary tract symptoms; S50.02XA Contusion of left elbow, initial encounter; Z79.01 Long term (current) use of anticoagulants; Z79.02 Long term (current) use of antithrombotics/antiplatelets; Z79.899 Other long term (current) drug therapy; Z80.0 Family history of malignant neoplasm of digestive organs; Z82.49 Family history of ischemic heart disease and other diseases of the circulatory system; Z83.3 Family history of diabetes mellitus; Z85.46 Personal history of malignant neoplasm of prostate; Z86.11 Personal history of tuberculosis; Z87.891 Personal history of nicotine dependence; Z95.5 Presence of coronary angioplasty implant and graft; Y93.89 Activity, other specified; Y92.89 Other specified places as the place of occurrence of the external cause; Y99.8 Other external cause status; Z97.4 Presence of external hearing-aid; Z79.82 Long term (current) use of aspirin
CPT/HCPCS: 36415; 70450; 70544; 70551; 71045; 73080; 73090; 73502; 80053; 80061; 81003; 82948; 83036; 83735; 84100; 84484; 85025; 85610; 85651; 85730; 86140; 92508; 92616; 93005; 93306; 93880; 93971; 97161; 97530; 99285; G0378; J0295; J1815; J7030; J8597

== ENCOUNTER 2019-08-20 10:24 | Observation (INO) | payer MEDICARE ==
[~2019-08-20] VITALS: Ht 180.3 cm; Wt 85.5 kg
[~2019-08-20 10:24] MED LIST changes: +AMIT10TA6 PO; -ASPI-1265 PO; -BETA1TAB20 PO; +CLOP75TA35 PO; +METO100T7 PO; -METO25TA6 PO; +NIAC500T7 PO; +VIT1CAPS46 PO; -VIT1CAPS9 PO
[2019-08-20 10:57] LABS: BASOPHILS % (AUTO) 0.6 % (0-1); EOSINOPHILS # (AUTO) 0.1 X10'3 (0-0.9); EOSINOPHILS % (AUTO) 1.3 % (0-6); HEMATOCRIT 42.5 % (42.0-52.0); LYMPHOCYTES # (AUTO) 0.6 X10'3 (1.1-4.8); LYMPHOCYTES % (AUTO) 7.9 % (21-51); MEAN CORPUSCULAR HEMOGLOBIN 29.6 PG (27.0-31.0); MEAN CORPUSCULAR VOLUME 89.9 FL (78-98); MEAN PLATELET VOLUME 7.7 FL (7.4-10.4); MONOCYTES # (AUTO) 0.5 X10'3 (0-0.9); MONOCYTES % (AUTO) 7.1 % (2-12); NEUTROPHILS # (AUTO) 6.4 X10'3 (1.8-7.7); NEUTROPHILS % (AUTO) 83.1 % (42-75); PLATELET COUNT 208 X10'3 (140-440); RED BLOOD COUNT 4.73 X10'6 (4.70-6.10); RED CELL DISTRIBUTION WIDTH 14.8 % (11.5-14.5); WHITE BLOOD COUNT 7.7 X10'3 (4.5-11.0)
[2019-08-20 11:12] LABS: ALANINE AMINOTRANSFERASE 27 U/L (12-78); ALBUMIN/GLOBULIN RATIO 1.3 (1.1-1.5); ALKALINE PHOSPHATASE 87 IU/L (46-116); ANION GAP 8 (8-16); ASPARTATE AMINO TRANSFERASE 20 U/L (10-37); BILIRUBIN,TOTAL 0.8 MG/DL (0.1-1.0); BLOOD UREA NITROGEN 10 MG/DL (7-18); BUN/CREATININE RATIO 12.3 (5.4-32.0); CALCIUM 8.9 MG/DL (8.5-10.1); CHLORIDE 106 MMOL/L (99-107); CREATININE 0.81 MG/DL (0.60-1.10); GLUCOSE 230 MG/DL (70-104); SODIUM 140 MMOL/L (135-145); TOTAL CARBON DIOXIDE 25.6 MMOL/L (24-32); eGFR 90 ML/MIN
[2019-08-20 11:19] LABS: MAGNESIUM 1.9 MG/DL (1.5-2.4)
[2019-08-20] MEDS ORDERED: dextrose ORAL solution 15 GM/59 ML bottle PO PRN ×2 (12:00)
[2019-08-20] MEDS ORDERED: mag hydrox/Alum hydrox/simeth 30ml oral suspension PO PRN (12:00)
[2019-08-20] MEDS ORDERED: HYDROcodone/acetaminophen 5mg/325mg tablet PO PRN (12:00)
[2019-08-20] MEDS ORDERED: glucagon, human recombinant 1mg kit SUBCUT PRN (12:00)
[2019-08-20] MEDS ORDERED: dextrose 50%-water 50ml dispensing syringe IV PRN ×2 (12:00)
[2019-08-20] MEDS ORDERED: magnesium hydroxide 30ml (MOM) UD suspension PO PRN (12:00)
[2019-08-20] MEDS ORDERED: morphine 2 MG/ML inj. syringe IV PRN ×2 (12:00)
[2019-08-20] MEDS ORDERED: insulin Lispro (HumaLOG) vial - multi-dose SQ SCH (12:00)
[2019-08-20] MEDS ORDERED: acetaminophen 325mg tablet PO PRN ×2 (12:00)
[2019-08-20] MEDS ORDERED: MESSAGE TO PHARMACY PO ONE (12:00)
[2019-08-20] MEDS ORDERED: ondansetron/PF 4mg/2ml inj IV PRN (12:00)
[2019-08-20 12:25] LABS: HEMOGLOBIN A1C 6.9 % (4.5-6.2)
[2019-08-20] MEDS ORDERED: METO25TA6 PO (13:41)
[2019-08-20] MEDS ORDERED: RIBO100T6 PO (13:41)
[2019-08-20] MEDS ORDERED: CHOL10005 PO (13:41)
[2019-08-20] MEDS: normal saline 1000ml 1,000 ML IV SCH ×2 (14:20→22:56)
--- NOTE | 2019-08-20 15:17 | NUR ---
Patient in room ED 8. I have received report from Katie AVALOS and had the opportunity to ask questions and assume patient care. Awaiting arrival of the patient to the unit
[2019-08-20 15:50] VITALS: BP 173/97
[2019-08-20 18:00] VITALS: BP 147/81
--- NOTE | 2019-08-20 19:22 | NUR ---
Patient in room PCU 3026. I have received report from Roberth AVALOS and had the opportunity to ask questions and assume patient care.
[2019-08-20 20:00] VITALS: BP_SYST 119; BP_SYST 121; BP_SYST 125; BP_DIAS 72; BP_DIAS 74; BP_DIAS 77
[2019-08-20] MEDS ORDERED: insulin glargine (Lantus) pen - multi-dose SQ SCH (21:00)
[2019-08-20 22:00] VITALS: BP 125/72
[2019-08-21 02:00] VITALS: BP 122/84
--- NOTE | 2019-08-21 06:10 | NUR ---
Problems reprioritized. Patient report given, questions answered & plan of care reviewed with Roberth AVALOS.
[2019-08-21 06:23] LABS: BASOPHILS % (AUTO) 0.7 % (0-1); EOSINOPHILS # (AUTO) 0.2 X10'3 (0-0.9); EOSINOPHILS % (AUTO) 2.9 % (0-6); HEMATOCRIT 38.4 % (42.0-52.0); HEMOGLOBIN 12.8 g/dl (14.0-17.9); LYMPHOCYTES # (AUTO) 0.9 X10'3 (1.1-4.8); MEAN CORPUSCULAR HGB CONC 33.4 g/dL (33.0-36.5); MEAN CORPUSCULAR VOLUME 89.8 FL (78-98); MEAN PLATELET VOLUME 7.9 FL (7.4-10.4); MONOCYTES # (AUTO) 0.6 X10'3 (0-0.9); MONOCYTES % (AUTO) 9.8 % (2-12); NEUTROPHILS # (AUTO) 4.6 X10'3 (1.8-7.7); NEUTROPHILS % (AUTO) 72.6 % (42-75); PLATELET COUNT 186 X10'3 (140-440); RED BLOOD COUNT 4.28 X10'6 (4.70-6.10); RED CELL DISTRIBUTION WIDTH 14.6 % (11.5-14.5); WHITE BLOOD COUNT 6.4 X10'3 (4.5-11.0)
[2019-08-21 06:49] LABS: ALBUMIN 3.2 G/DL (3.4-5.0); ANION GAP 7 (8-16); BLOOD UREA NITROGEN 10 MG/DL (7-18); BUN/CREATININE RATIO 14.7 (5.4-32.0); CALCIUM 8.4 MG/DL (8.5-10.1); CHLORIDE 111 MMOL/L (99-107); CHOLESTEROL 115 MG/DL (0-200); CREATININE 0.68 MG/DL (0.60-1.10); GLUCOSE 114 MG/DL (70-104); HDL CHOLESTEROL 29 MG/DL (35-60); LDL CHOLESTEROL 69 MG/DL (50-100); POTASSIUM 3.7 MMOL/L (3.5-5.1); SODIUM 144 MMOL/L (135-145); TOTAL CARBON DIOXIDE 25.6 MMOL/L (24-32); TRIGLYCERIDES 67 MG/DL (20-135); eGFR > 90 ML/MIN
[2019-08-21 07:00] VITALS: BP 137/85
[2019-08-21 08:00] VITALS: BP_SYST 137; BP_SYST 158; BP_DIAS 85; BP_DIAS 87; BP_DIAS 93
[2019-08-21] MEDS ORDERED: meclizine 12.5mg tablet PO PRN (09:10)
[2019-08-21 11:00] VITALS: BP 132/76
--- NOTE | 2019-08-21 11:02 | NUR ---
DM/Malnutrition consults: Pt A1C less than 7 and not appropriate for DM ed at this time. Pt admit w/ syncopal episodes PO 100% initial heart healthy meals meeting needs thus far; good PO given age. Pt has no edema/wounds, no significant weakness noted, and current wt is pt stated pending scaled wt. Prior chair scale wt May admit 87kg. At this time pt does not meet minimum malnutrition criteria; will monitor for PO hx, scaled wt, and additional malnutrition criteria this admit. Addendum: 08/21/19 at [address] Amended: Links added.
[2019-08-21] MEDS ORDERED: MECL-183 PO (13:38)
--- NOTE | 2019-08-21 15:33 | NUR ---
Patient stable for discharge per MD order. All necessary discharge information and education reviewed with patient before signing necessary paperwork. IV discontinued with catheter in tact, telemetry monitoring removed, all patient belongings packed up, new Rx called in to [facility] in [place], patient wheeled down to lob and picked up in private vehicle by his .
--- NOTE | 2019-08-22 14:32 | NUR ---
Case Management DC follow up: [facility] post DC status, questions, concerns Addendum: 08/22/19 at 1604 by Rhina Moore RN Case Management DC follow up: spoke to pt spouse via telephone: reports:pt "feeling good, no more episodes of dizziness, outside planting seeds in the garden" status post-vertigo, pre syncope. Denies acute/persistent CP, emergent general pain, SOB, resp distress, NV, vertigo, syncope, VANCE, abd distension/tenderness, general/concerning bruising, bleeding, fever, diaphoreses, confusion. Verbalizes understanding of s/s that would warrant 9-11/ER visit for further evaluation. Verbalizes understanding of current and/or new Rx Meclizine, which pt agrees to picker feeder at pharmacy; pt will call ahead to make sure it was called in and ready for picker feeder; taking current meds as ordered, no ase noted r/t polypharmacy. Acknowledges need to schedule/keep follow up appts w/PCP/ Lucrecia JULIAN for referrals: ENT evaluation, PT for vertigo as outpatient. All questions/concerns addressed and answered at DC; Verbalizes understanding of post status after-care compliance. No further questions at this time.
== END 2019-08-21 15:30 | disposition home or self-care (01) ==
LOC: ER 10:25 → ED HOLD 11:56 → PCU 3S 15:44
PROVIDERS: ADMIT Internal Medicine; ATTEND Internal Medicine
DX: R55 Syncope and collapse (principal); I11.0 Hypertensive heart disease with heart failure; I50.32 Chronic diastolic (congestive) heart failure; I25.10 Atherosclerotic heart disease of native coronary artery without angina pectoris; I25.2 Old myocardial infarction; I48.0 Paroxysmal atrial fibrillation; E11.9 Type 2 diabetes mellitus without complications; J44.9 Chronic obstructive pulmonary disease, unspecified; E78.5 Hyperlipidemia, unspecified; G47.00 Insomnia, unspecified; E78.00 Pure hypercholesterolemia, unspecified; Z98.61 Coronary angioplasty status; Z90.49 Acquired absence of other specified parts of digestive tract; Z79.01 Long term (current) use of anticoagulants; Z79.02 Long term (current) use of antithrombotics/antiplatelets; Z79.84 Long term (current) use of oral hypoglycemic drugs; Z79.899 Other long term (current) drug therapy
CPT/HCPCS: 36415; 70450; 71045; 80048; 80053; 80061; 82948; 83036; 83735; 83880; 84145; 84484; 85025; 87081; 93005; 96360; 96361; 97112; 97162; 97530; 99285; G0378; J1815; J7030; J8597

== ENCOUNTER 2020-04-07 08:50 | Inpatient (IN) | payer MEDICARE ==
[2020-03-17 16:31] LABS: BASOPHILS % (AUTO) 0.7 % (0-1); EOSINOPHILS # (AUTO) 0.1 X10'3 (0-0.9); EOSINOPHILS % (AUTO) 1.8 % (0-6); LYMPHOCYTES # (AUTO) 0.9 X10'3 (1.1-4.8); LYMPHOCYTES % (AUTO) 14.4 % (21-51); MEAN CORPUSCULAR HGB CONC 33.4 g/dL (33.0-36.5); MEAN CORPUSCULAR VOLUME 92.8 FL (78-98); MEAN PLATELET VOLUME 8.6 FL (7.4-10.4); MONOCYTES # (AUTO) 0.7 X10'3 (0-0.9); MONOCYTES % (AUTO) 11.4 % (2-12); NEUTROPHILS # (AUTO) 4.3 X10'3 (1.8-7.7); NEUTROPHILS % (AUTO) 71.7 % (42-75); PRE OP HEMATOCRIT 38.9 % (42.0-52.0); PRE OP PLATELET COUNT 182 X10'3 (140-440); RED BLOOD COUNT 4.19 X10'6 (4.70-6.10); RED CELL DISTRIBUTION WIDTH 14.7 % (11.5-14.5)
[2020-03-17 16:45] LABS: HEMOGLOBIN A1C 7.5 % (4.5-6.2)
[2020-03-17 16:46] LABS: ALBUMIN 3.9 G/DL (3.4-5.0); ALBUMIN/GLOBULIN RATIO 1.4 (1.1-1.5); ALKALINE PHOSPHATASE 93 IU/L (46-116); BLOOD UREA NITROGEN 12 MG/DL (7-18); BUN/CREATININE RATIO 13.6 (5.4-32.0); CALCIUM 8.7 MG/DL (8.5-10.1); CHLORIDE 107 MMOL/L (99-107); CREATININE 0.88 MG/DL (0.60-1.10); PRE OP ALT 27 U/L (30-65); PRE OP ANION GAP 10 (8-16); PRE OP AST 21 U/L (10-37); PRE OP BILIRUB, TOTAL 0.7 MG/DL (0.0-1.0); PRE OP INR 1.2 INR; PRE OP POTASSIUM 4.1 MMOL/L (3.4-5.1); PRE OP SODIUM 142 MMOL/L (135-145); TOTAL CARBON DIOXIDE 24.7 MMOL/L (24-32); TOTAL PROTEIN 6.6 G/DL (6.4-8.2); eGFR 82 ML/MIN
[2020-03-17 16:47] LABS: PRE OP GLUCOSE 239 MG/DL (70-104)
[2020-04-02 12:53] LABS: PRE OP INR 1.2 INR
[2020-04-02 12:56] LABS: ALBUMIN 4.1 G/DL (3.4-5.0); ALBUMIN/GLOBULIN RATIO 1.5 (1.1-1.5); ALKALINE PHOSPHATASE 102 IU/L (46-116); BLOOD UREA NITROGEN 12 MG/DL (7-18); CALCIUM 8.9 MG/DL (8.5-10.1); CHLORIDE 108 MMOL/L (99-107); CREATININE 0.75 MG/DL (0.60-1.10); PRE OP ALT 37 U/L (30-65); PRE OP ANION GAP 7 (8-16); PRE OP AST 22 U/L (10-37); PRE OP GLUCOSE 81 MG/DL (70-104); PRE OP POTASSIUM 3.9 MMOL/L (3.4-5.1); PRE OP SODIUM 143 MMOL/L (135-145); TOTAL CARBON DIOXIDE 27.7 MMOL/L (24-32); TOTAL PROTEIN 6.9 G/DL (6.4-8.2); eGFR > 90 ML/MIN
[2020-04-02 12:59] LABS: BASOPHILS # (AUTO) 0.1 X10'3 (0-0.2); BASOPHILS % (AUTO) 0.7 % (0-1); EOSINOPHILS # (AUTO) 0.1 X10'3 (0-0.9); EOSINOPHILS % (AUTO) 1.4 % (0-6); LYMPHOCYTES # (AUTO) 0.8 X10'3 (1.1-4.8); LYMPHOCYTES % (AUTO) 11.1 % (21-51); MEAN CORPUSCULAR HEMOGLOBIN 30.8 PG (27.0-31.0); MEAN CORPUSCULAR HGB CONC 33.6 g/dL (33.0-36.5); MEAN CORPUSCULAR VOLUME 91.8 FL (78-98); MEAN PLATELET VOLUME 8.2 FL (7.4-10.4); MONOCYTES # (AUTO) 0.8 X10'3 (0-0.9); MONOCYTES % (AUTO) 10.6 % (2-12); NEUTROPHILS # (AUTO) 5.6 X10'3 (1.8-7.7); NEUTROPHILS % (AUTO) 76.2 % (42-75); PRE OP HEMATOCRIT 39.1 % (42.0-52.0); PRE OP HEMOGLOBIN 13.1 g/dL (14.0-17.9); PRE OP PLATELET COUNT 182 X10'3 (140-440); RED BLOOD COUNT 4.26 X10'6 (4.70-6.10); RED CELL DISTRIBUTION WIDTH 14.7 % (11.5-14.5)
[2020-04-02 13:26] LABS: HEMOGLOBIN A1C 7.7 % (4.5-6.2)
[2020-04-07] VITALS (16 sets, daily range): BP systolic 15–182; BP diastolic 70–110
[~2020-04-07] VITALS: Ht 182.9 cm; Wt 81.6 kg
[~2020-04-07 08:50] MED LIST changes: +CHOL10005 PO; -CLOP75TA35 PO; +DOCUMENT DATE & TIME OF BETA-BLOCKER PO ONE; -METO100T7 PO; +METO25TA6 PO; +NIAC500T44 PO; -NIAC500T7 PO; -PANT40TA4 PO; +PANT40TA54 PO; +RIBO100T6 PO; +ceFAZolin 2gm in dextrose, iso 50 ML IV ONE; +famotidine 20mg tablet PO ONE; +ringers solution, lacted 1,000 ML IV SCH; +tranexamic acid inj. 820 MG in normal saline 100ml IV soln 91.8 ML IV ONE; +vancomycin 1,500 MG in NS 300ml IV soln IV ONE
[2020-04-07] MEDS ORDERED: ketorolac trometh. 30mg/ml inj. ONE (11:11)
[2020-04-07] MEDS ORDERED: ROPIVAcaine 0.5% (5mg/ml) 30ml vial ONE ×2 (11:11→11:32)
[2020-04-07] MEDS ORDERED: tetracaine 1% (10mg/ml) pres. free inj. ONE (11:14)
[2020-04-07] MEDS ORDERED: fentaNYL/PF 50MCG/1 ML 2ML syringe ONE (11:26)
[2020-04-07] MEDS ORDERED: MIDAZolam 5mg/5ml vial ONE (11:26)
[2020-04-07] MEDS ORDERED: meperidine/PF 25mg/ml syringe IV PRN ×3 (12:25)
[2020-04-07] MEDS ORDERED: morphine 4 MG/ML inj SYRINge IV PRN (12:25)
[2020-04-07] MEDS ORDERED: ROPIVAcaine 0.2% (10 MG/5 ML) BOLUS INJECTION ADDCANAL PRN (12:25)
[2020-04-07] MEDS ORDERED: proCHLORperazine 10 MG/2 ml inj IV PRN (12:25)
[2020-04-07] MEDS ORDERED: morphine 2 MG/ML inj. syringe IV PRN (12:25)
[2020-04-07] MEDS ORDERED: ringers solution, lacted 1,000 ML IV SCH (12:25)
[2020-04-07] MEDS ORDERED: ROPIVAcaine 0.2%/PF PUMP/bolus 550 ML ADDCANAL SCH (12:25)
[2020-04-07] MEDS ORDERED: ondansetron/PF 4mg/2ml inj IV PRN ×2 (12:25→14:15)
[2020-04-07] MEDS ORDERED: propofol inj 20 ML IV ONE (13:06)
[2020-04-07] MEDS ORDERED: acetaminophen 325mg tablet PO PRN (14:15)
[2020-04-07] MEDS ORDERED: bisacodyl 10mg suppository rectal RC PRN (14:15)
[2020-04-07] MEDS ORDERED: diphenhydrAMINE 25mg capsule PO PRN ×2 (14:15)
[2020-04-07] MEDS ORDERED: magnesium hydroxide 30ml (MOM) UD suspension PO PRN (14:15)
[2020-04-07] MEDS ORDERED: nitroGLYCERIN 0.4mg SUBLingual tab SL PRN (14:15)
[2020-04-07] MEDS ORDERED: oxyCODONE IR 5mg (immed. release) tablet PO PRN (14:15)
[2020-04-07] MEDS ORDERED: HYDROmorphone inj. 0.5 MG/0.5 ML DISP.SYRIN IV PRN (14:15)
--- NOTE | 2020-04-07 14:15 | NUR ---
ADMITTED TO PACU FROM OR ACCOMPANIED BY ANESTHESIA. INTIAL PHYSICAL ASSESSMENT DONE AND RECORDED. REPORT RECEIVED FROM ANESTHESIA.
--- NOTE | 2020-04-07 15:15 | NUR ---
PACU DISCHARGE CRITERIA MET, REPORT GIVEN TO FLOOR. DENIES PAIN OR DISCOMFORT, TRANSFERRED TO ROOM IN STABLE GOOD CONDITION.
--- NOTE | 2020-04-07 15:34 | NUR ---
Patient just arrived to the room from PACU. Patient is s/p right total knee replacement. Patient has onQ @ 4ml/hr at the moment. Patient denies pain at this time. Patient had spinal anesthesia during surgery, as of this time patient has not have sensation yet on his legs. Patient hooked to vital signs machine to monitor vital signs post op. Ice pack on the right knee noted upon arrival.
--- NOTE | 2020-04-07 17:13 | NUR ---
BP noted high at this time 184/103, patient stated he is in pain 11/18. OnQ bolus given then increased the rate from 4ml/hr to 6ml/hr
[2020-04-07] MEDS ORDERED: tranexamic acid inj. 820 MG in normal saline 100ml IV soln 100 ML IV ONE (17:15)
[2020-04-07] MEDS: ceFAZolin/D5W- 1GM premix 50 ML IV SCH ×2 (17:18→23:31)
[2020-04-07] MEDS: potassium cl 20mEq in 1/2 NS 1,000 ML IV SCH (17:19)
[2020-04-07] MEDS: oxyCODONE IR 5mg (immed. release) tablet PO PRN (17:29)
--- NOTE | 2020-04-07 17:29 | NUR ---
Patient still in pain at this time 01/18, BP 178/94. Oxy IR 10mg PO given as indicated for severe pain
--- NOTE | 2020-04-07 17:56 | NUR ---
Pain level 8/10, BP 176/100. Another bolus of OnQ given and rate increased to 8ml/hr
--- NOTE | 2020-04-07 18:06 | NUR ---
Problems reprioritized. Patient report given, questions answered & plan of care reviewed with Jovana AVALOS.
[2020-04-07] MEDS ORDERED: NIACINAMIDE PO SCH (20:00)
[2020-04-07] MEDS ORDERED: vancomycin/NS 1 GM ADD-VANTAGE 250 ML IV SCH (20:00)
[2020-04-07] MEDS ORDERED: sennosides 8.6mg tablet PO SCH (21:00)
[2020-04-07] MEDS: acetaminophen 325mg tablet PO SCH (21:37)
[2020-04-07] MEDS: metoprolol tartrate 25mg tablet PO SCH (21:38)
[2020-04-07] MEDS: apixaban 5mg tablet PO SCH (21:38)
[2020-04-07] MEDS: amitriptyline 10mg tablet PO SCH (21:39)
[2020-04-07] MEDS: pyridostigmine br 60mg tablet PO SCH (21:39)
[2020-04-08] VITALS: BP 153/82
[2020-04-08] MEDS: acetaminophen 325mg tablet PO SCH ×3 (02:34→15:01)
[2020-04-08] MEDS: potassium cl 20mEq in 1/2 NS 1,000 ML IV SCH (02:40)
[2020-04-08] MEDS: oxyCODONE IR 5mg (immed. release) tablet PO PRN ×2 (04:26→09:06)
[2020-04-08 06:00] LABS: BASOPHILS % (AUTO) 0.4 % (0-1); EOSINOPHILS # (AUTO) 0.2 X10'3 (0-0.9); EOSINOPHILS % (AUTO) 2.6 % (0-6); HEMATOCRIT 29.7 % (42.0-52.0); HEMOGLOBIN 10.2 g/dl (14.0-17.9); LYMPHOCYTES # (AUTO) 0.6 X10'3 (1.1-4.8); MEAN CORPUSCULAR HEMOGLOBIN 31.1 PG (27.0-31.0); MEAN CORPUSCULAR HGB CONC 34.2 g/dL (33.0-36.5); MEAN CORPUSCULAR VOLUME 90.9 FL (78-98); MEAN PLATELET VOLUME 8.4 FL (7.4-10.4); MONOCYTES # (AUTO) 0.8 X10'3 (0-0.9); MONOCYTES % (AUTO) 10.2 % (2-12); NEUTROPHILS # (AUTO) 6.4 X10'3 (1.8-7.7); NEUTROPHILS % (AUTO) 79.8 % (42-75); PLATELET COUNT 157 X10'3 (140-440); RED BLOOD COUNT 3.27 X10'6 (4.70-6.10); RED CELL DISTRIBUTION WIDTH 14.4 % (11.5-14.5); WHITE BLOOD COUNT 8.1 X10'3 (4.5-11.0)
[2020-04-08 06:02] LABS: ANION GAP 8 (8-16); CHLORIDE 105 MMOL/L (99-107); POTASSIUM 3.8 MMOL/L (3.5-5.1); SODIUM 139 MMOL/L (135-145); TOTAL CARBON DIOXIDE 25.7 MMOL/L (24-32)
[2020-04-08 07:44] VITALS: BP 129/63
[2020-04-08] MEDS ORDERED: atorvastatin 20mg tablet PO SCH (08:00)
[2020-04-08] MEDS ORDERED: linagliptin 5mg tablet PO SCH (08:00)
[2020-04-08] MEDS ORDERED: pantoprazole 40mg Tablet.DR PO SCH (08:00)
[2020-04-08] MEDS ORDERED: lisinopril 2.5mg tablet PO SCH (08:00)
[2020-04-08] MEDS ORDERED: magnesium oxide 400mg tablet PO SCH (08:00)
[2020-04-08] MEDS ORDERED: furosemide 20MG tablet PO SCH (08:00)
[2020-04-08] MEDS ORDERED: aspirin 325mg tablet PO SCH (08:30)
[2020-04-08] MEDS: apixaban 5mg tablet PO SCH (08:57)
[2020-04-08] MEDS: metoprolol tartrate 25mg tablet PO SCH (08:58)
[2020-04-08] MEDS: amitriptyline 10mg tablet PO SCH ×2 (08:59→15:01)
[2020-04-08 11:00] VITALS: BP 118/67
--- NOTE | 2020-04-08 13:56 | NUR ---
DM Consult: Pt A1C 7.5 appropriate given age. Addendum: 04/08/20 at [address] Amended: Links added.
[2020-04-08] MEDS: pyridostigmine br 60mg tablet PO SCH (15:01)
--- NOTE | 2020-04-09 13:46 | NUR ---
CASE MANAGEMENT DISCHARGE FOLLOW UP: Spoke with pt via telephone. Pt reports that he is doing well. States that pain in his knee is not too bad. States that above his knee is black and blue and sore, but tolerable. Denies drainage or foul odor from wound, denies fever. Upon inquiry, pt states that his pain pump was bothering him, very sore at site with some redness, so he took it out last night. Pt states that the area where he removed the pump is no longer sore or red. Pt states that he has not used his IS since returning home, but that he did use it in the hospital. Instructed pt to use IS to prevent pneumonia, pt verbalizes understanding. Verbalizes understanding of s/sx requiring further evaluation/emergent assistance. Pt verbalizes importance of keeping follow-up appointment. Pt states no further questions/concerns at this time.
[2020-04-09] MEDS ORDERED: acetaminophen 325mg tablet PO PRN (14:15)
== END 2020-04-08 15:17 | disposition home or self-care (01) | DRG 470 ==
LOC: PAS 08:50 → SUR 3N 14:12
PROVIDERS: ADMIT Orthopaedic Surgery; ATTEND Orthopaedic Surgery
PROC: 8E0Y0CZ Robotic Assisted Procedure of Lower Extremity, Open Approach (ICD-10-PCS; 2020-04-07)
PROC: 0SRD0J9 Replacement of Left Knee Joint with Synthetic Substitute, Cemented, Open Approach (ICD-10-PCS; principal; 2020-04-07 11:32)
DX: M17.0 Bilateral primary osteoarthritis of knee (principal); M21.00 Valgus deformity, not elsewhere classified, unspecified site; Z20.828 Contact with and (suspected) exposure to other viral communicable diseases
CPT/HCPCS: 36415; 80051; 80053; 82948; 83036; 85025; 85610; 85730; 87081; 87635; 97110; 97116; 97162; 97530; A4215; A6258; A7000; C1713; C1758; C1776; G0378; J0690; J1885; J2250; J2704; J2795; J3010; J3370; J3480; J7040; J7120

== ENCOUNTER 2020-04-15 14:24 | Emergency (ER) | payer MEDICARE ==
[~2020-04-15] VITALS: Ht 182.9 cm; Wt 81.8 kg
[~2020-04-15 14:24] MED LIST changes: -DOCUMENT DATE & TIME OF BETA-BLOCKER PO ONE; -ceFAZolin 2gm in dextrose, iso 50 ML IV ONE; -famotidine 20mg tablet PO ONE; -ringers solution, lacted 1,000 ML IV SCH; -tranexamic acid inj. 820 MG in normal saline 100ml IV soln 91.8 ML IV ONE; -vancomycin 1,500 MG in NS 300ml IV soln IV ONE
[2020-04-15] MEDS ORDERED: ondansetron 4mg rapidly disintigrating tab PO ONE ×3 (17:30→20:20)
[2020-04-15] MEDS ORDERED: HYDROcodone/acetaminophen 5mg/325mg tablet PO ONE ×2 (17:30→20:00)
[2020-04-15 18:03] LABS: D-DIMER 2.19 MG/L FEU (0-0.50)
[2020-04-15 18:06] LABS: ALANINE AMINOTRANSFERASE 28 U/L (12-78); ALBUMIN 3.4 G/DL (3.4-5.0); ALBUMIN/GLOBULIN RATIO 1.1 (1.1-1.5); ALKALINE PHOSPHATASE 117 IU/L (46-116); ANION GAP 10 (8-16); ASPARTATE AMINO TRANSFERASE 23 U/L (10-37); BILIRUBIN,TOTAL 2.2 MG/DL (0.1-1.0); BLOOD UREA NITROGEN 22 MG/DL (7-18); BUN/CREATININE RATIO 23.9 (5.4-32.0); CALCIUM 8.8 MG/DL (8.5-10.1); CHLORIDE 104 MMOL/L (99-107); CREATININE 0.92 MG/DL (0.60-1.10); GLUCOSE 184 MG/DL (70-104); POTASSIUM 3.7 MMOL/L (3.5-5.1); SODIUM 140 MMOL/L (135-145); TOTAL CARBON DIOXIDE 25.9 MMOL/L (24-32); TOTAL PROTEIN 6.6 G/DL (6.4-8.2); eGFR 78 ML/MIN
[2020-04-15] MEDS ORDERED: normal saline 1000ml 1,000 ML IV ONE (18:10)
[2020-04-15 18:15] LABS: BASOPHILS # (AUTO) 0.1 X10'3 (0-0.2); BASOPHILS % (AUTO) 0.9 % (0-1); EOSINOPHILS # (AUTO) 0.2 X10'3 (0-0.9); EOSINOPHILS % (AUTO) 2.5 % (0-6); HEMATOCRIT 24.3 % (42.0-52.0); HEMOGLOBIN 8.2 g/dl (14.0-17.9); LYMPHOCYTES # (AUTO) 0.7 X10'3 (1.1-4.8); LYMPHOCYTES % (AUTO) 7.2 % (21-51); MEAN CORPUSCULAR HEMOGLOBIN 31.1 PG (27.0-31.0); MEAN CORPUSCULAR HGB CONC 33.8 g/dL (33.0-36.5); MEAN CORPUSCULAR VOLUME 92.3 FL (78-98); MEAN PLATELET VOLUME 7.5 FL (7.4-10.4); NEUTROPHILS # (AUTO) 7.9 X10'3 (1.8-7.7); NEUTROPHILS % (AUTO) 79.4 % (42-75); PLATELET COUNT 305 X10'3 (140-440); RED BLOOD COUNT 2.63 X10'6 (4.70-6.10); RED CELL DISTRIBUTION WIDTH 14.7 % (11.5-14.5)
[2020-04-15] MEDS ORDERED: vancomycin/NS 1 GM ADD-VANTAGE 250 ML IV ONE (18:15)
[2020-04-15] MEDS ORDERED: CefTRIAXone 2gm/D5W 50ml BAG 50 ML IV ONE (18:15)
[2020-04-15] MEDS ORDERED: iohexol 350MG/ML 100ml bottle IV ONE (18:33)
[2020-04-15 19:05] VITALS: BP 141/87
[2020-04-15] MEDS ORDERED: MESSAGE TO NURSING PO NR (19:30)
== END 2020-04-15 21:36 | disposition home or self-care (01) ==
LOC: ER 14:25
DX: M96.89 Other intraoperative and postprocedural complications and disorders of the musculoskeletal system (principal); R07.89 Other chest pain; R06.02 Shortness of breath; I48.91 Unspecified atrial fibrillation; I25.10 Atherosclerotic heart disease of native coronary artery without angina pectoris; E78.00 Pure hypercholesterolemia, unspecified; I10 Essential (primary) hypertension; I25.2 Old myocardial infarction; K21.9 Gastro-esophageal reflux disease without esophagitis; E11.9 Type 2 diabetes mellitus without complications; Z87.01 Personal history of pneumonia (recurrent); Z85.9 Personal history of malignant neoplasm, unspecified; Z98.890 Other specified postprocedural states; Z79.899 Other long term (current) drug therapy
CPT/HCPCS: 36415; 71045; 71275; 80053; 83605; 84145; 85025; 85379; 87040; 93005; 93971; 96365; 96366; 96368; 99285; J0696; J3370; J7030; Q9967

== ENCOUNTER 2020-05-07 13:32 | Emergency (ER) | payer MEDICARE ==
[~2020-05-07] VITALS: Ht 182.9 cm; Wt 81.8 kg
[~2020-05-07 13:32] MED LIST changes: +ALBU2.5V13 NEB; +ATOR-2 PO; -ATOR40TA71 PO; +CLOP75TA34 PO; +GABA300C PO; +HYDR-3965 PO; +MECL-159 PO; +METF-900 PO; +METO-411 PO; -METO25TA6 PO
--- NOTE | 2020-05-07 14:23 | NUR ---
STEVE MILIAN AND MD SORENSON AT BEDSIDE
[2020-05-07 15:10] LABS: BASOPHILS % (AUTO) 0.7 % (0-1); EOSINOPHILS % (AUTO) 0.7 % (0-6); HEMATOCRIT 33.8 % (42.0-52.0); HEMOGLOBIN 10.9 g/dl (14.0-17.9); LYMPHOCYTES # (AUTO) 0.4 X10'3 (1.1-4.8); MEAN CORPUSCULAR HEMOGLOBIN 29.3 PG (27.0-31.0); MEAN CORPUSCULAR HGB CONC 32.3 g/dL (33.0-36.5); MEAN CORPUSCULAR VOLUME 90.6 FL (78-98); MEAN PLATELET VOLUME 7.5 FL (7.4-10.4); MONOCYTES # (AUTO) 0.8 X10'3 (0-0.9); MONOCYTES % (AUTO) 16.7 % (2-12); NEUTROPHILS # (AUTO) 3.7 X10'3 (1.8-7.7); NEUTROPHILS % (AUTO) 73.9 % (42-75); PLATELET COUNT 199 X10'3 (140-440); RED BLOOD COUNT 3.73 X10'6 (4.70-6.10); RED CELL DISTRIBUTION WIDTH 17.2 % (11.5-14.5)
--- NOTE | 2020-05-07 15:20 | NUR ---
ULTRASOUND AT BEDSIDE.
[2020-05-07 15:26] LABS: ALANINE AMINOTRANSFERASE 24 U/L (12-78); ALBUMIN 3.8 G/DL (3.4-5.0); ALBUMIN/GLOBULIN RATIO 1.2 (1.1-1.5); ALKALINE PHOSPHATASE 136 IU/L (46-116); ANION GAP 10 (8-16); ASPARTATE AMINO TRANSFERASE 25 U/L (10-37); BLOOD UREA NITROGEN 15 MG/DL (7-18); BUN/CREATININE RATIO 17.2 (5.4-32.0); C-REACTIVE PROTEIN 2.75 MG/DL (0.0-0.5); CALCIUM 8.8 MG/DL (8.5-10.1); CHLORIDE 103 MMOL/L (99-107); CREATININE 0.87 MG/DL (0.60-1.10); GLUCOSE 127 MG/DL (70-104); POTASSIUM 3.7 MMOL/L (3.5-5.1); SODIUM 139 MMOL/L (135-145); TOTAL CARBON DIOXIDE 26.1 MMOL/L (24-32); eGFR 83 ML/MIN
[2020-05-07] MEDS ORDERED: HYDR-3965 PO (16:14)
[2020-05-07 16:34] VITALS: BP 141/65
== END 2020-05-07 16:37 | disposition home or self-care (01) ==
LOC: ER 13:33
DX: M25.561 Pain in right knee (principal); I48.91 Unspecified atrial fibrillation; I25.10 Atherosclerotic heart disease of native coronary artery without angina pectoris; E78.00 Pure hypercholesterolemia, unspecified; I10 Essential (primary) hypertension; I25.2 Old myocardial infarction; K21.9 Gastro-esophageal reflux disease without esophagitis; E11.9 Type 2 diabetes mellitus without complications; Z85.9 Personal history of malignant neoplasm, unspecified; Z87.01 Personal history of pneumonia (recurrent); Z98.890 Other specified postprocedural states; Z79.899 Other long term (current) drug therapy
CPT/HCPCS: 36415; 80053; 84145; 85025; 85651; 86140; 93971; 99284

== ENCOUNTER 2020-06-10 12:28 | Day surgery (SDC) | payer MEDICARE ==
[2020-06-05 11:32] LABS: BASOPHILS # (AUTO) 0.1 X10'3 (0-0.2); BASOPHILS % (AUTO) 0.9 % (0-1); EOSINOPHILS # (AUTO) 0.2 X10'3 (0-0.9); EOSINOPHILS % (AUTO) 2.4 % (0-6); HEMATOCRIT 33.8 % (42.0-52.0); HEMOGLOBIN 11.2 g/dl (14.0-17.9); LYMPHOCYTES # (AUTO) 0.5 X10'3 (1.1-4.8); LYMPHOCYTES % (AUTO) 7.1 % (21-51); MEAN CORPUSCULAR HEMOGLOBIN 28.3 PG (27.0-31.0); MEAN CORPUSCULAR VOLUME 85.8 FL (78-98); MEAN PLATELET VOLUME 7.8 FL (7.4-10.4); MONOCYTES # (AUTO) 0.7 X10'3 (0-0.9); MONOCYTES % (AUTO) 8.6 % (2-12); NEUTROPHILS # (AUTO) 6.2 X10'3 (1.8-7.7); PLATELET COUNT 218 X10'3 (140-440); RED BLOOD COUNT 3.95 X10'6 (4.70-6.10); RED CELL DISTRIBUTION WIDTH 16.9 % (11.5-14.5); WHITE BLOOD COUNT 7.7 X10'3 (4.5-11.0)
[2020-06-05 11:43] LABS: PARTIAL THROMBOPLASTIN TIME 31 SECONDS (22-32)
[2020-06-05 12:00] LABS: ALBUMIN 3.7 G/DL (3.4-5.0); ANION GAP 12 (8-16); BLOOD UREA NITROGEN 12 MG/DL (7-18); CALCIUM 8.8 MG/DL (8.5-10.1); CHLORIDE 104 MMOL/L (99-107); CREATININE 0.75 MG/DL (0.60-1.10); GLUCOSE 189 MG/DL (70-104); SODIUM 139 MMOL/L (135-145); TOTAL CARBON DIOXIDE 23.5 MMOL/L (24-32); eGFR > 90 ML/MIN
[~2020-06-10] VITALS: Ht 182.9 cm; Wt 82.1 kg
[2020-06-10] VITALS (8 sets, daily range): BP systolic 130–162; BP diastolic 74–101
[~2020-06-10 12:28] MED LIST changes: -HYDR-3965 PO
[2020-06-10] MEDS ORDERED: normal saline 1,000 ML IV SCH (12:50)
[2020-06-10] MEDS ORDERED: diphenhydrAMINE 25mg capsule PO PRN (12:50)
[2020-06-10] MEDS ORDERED: LORazepam 0.5 MG tablet PO PRN (12:50)
[2020-06-10] MEDS ORDERED: HYDR-3964 PO (13:06)
[2020-06-10] MEDS ORDERED: FURO-150 PO (13:08)
[2020-06-10] MEDS ORDERED: METO25TA6 PO (13:08)
[2020-06-10] MEDS ORDERED: LIDOcaine 1% (10mg/ml)w/preservative injection 20ml MDV ONE (14:22)
[2020-06-10] MEDS ORDERED: fentaNYL/PF 50MCG/1 ML 2ML syringe ONE (14:22)
[2020-06-10] MEDS ORDERED: verapamil 2.5 mg/ml inj IV ONE (14:22)
[2020-06-10] MEDS ORDERED: nitroGLYCERIN-Tridil 50MG/D5W 250 ML IV ONE (14:22)
[2020-06-10] MEDS ORDERED: midazolam 1 mg/ML 2ml injection ONE (14:22)
[2020-06-10] MEDS ORDERED: iohexol 350MG/ML 100ml bottle IV ONE (14:22)
[2020-06-10] MEDS ORDERED: heparin 1,000unit/ml 10ml vial 10 ML ONE (14:22)
[2020-06-10] MEDS ORDERED: ondansetron/PF 4mg/2ml inj IV PRN (15:45)
[2020-06-10] MEDS ORDERED: HYDROcodone/acetaminophen 5mg/325mg tablet PO PRN (15:45)
[2020-06-10] MEDS ORDERED: acetaminophen 325mg tablet PO PRN (15:45)
[2020-06-10] MEDS ORDERED: nitroGLYCERIN 0.4mg SUBLingual tab SL PRN (15:45)
[2020-06-10] MEDS ORDERED: HYDROcodone/acetaminophen 10/325mg tab PO PRN (15:45)
[2020-06-10] MEDS ORDERED: proCHLORperazine 10 MG/2 ml inj IV PRN (15:45)
[2020-06-10] MEDS ORDERED: OXAZEpam 15mg capsule PO PRN (15:45)
[2020-06-10] MEDS ORDERED: FLU VACC QS2020-21(6MOS UP)/PF 60 MCG/0.5 ML SYRINGE IMVAC ONE (19:25)
== END 2020-06-10 18:10 | disposition home or self-care (01) ==
LOC: SSTAY O 12:28
PROVIDERS: ATTEND Internal Medicine Interventional Cardiology
DX: I35.0 Nonrheumatic aortic (valve) stenosis (principal); I25.10 Atherosclerotic heart disease of native coronary artery without angina pectoris; I11.0 Hypertensive heart disease with heart failure; I50.9 Heart failure, unspecified; E78.5 Hyperlipidemia, unspecified; I27.20 Pulmonary hypertension, unspecified; E11.40 Type 2 diabetes mellitus with diabetic neuropathy, unspecified; I48.91 Unspecified atrial fibrillation; Z79.899 Other long term (current) drug therapy; Z79.01 Long term (current) use of anticoagulants; Z87.891 Personal history of nicotine dependence; Z85.46 Personal history of malignant neoplasm of prostate; Z95.5 Presence of coronary angioplasty implant and graft; Z83.3 Family history of diabetes mellitus; Z80.0 Family history of malignant neoplasm of digestive organs
CPT/HCPCS: 36415; 80048; 85025; 85610; 85730; 93005; 93454; 99152; C1769; C1894; J1644; J2001; J2250; J3010; J7030; Q0163; Q9967; A4620; A6258; J3490

== ENCOUNTER 2020-06-30 07:56 | Outpatient (CLI) | payer MEDICARE ==
[~2020-06-30] VITALS: Ht 177.8 cm; Wt 81.6 kg
[~2020-06-30 07:56] MED LIST changes: -ALBU2.5V13 NEB; -GABA300C PO; +HYDR-3964 PO; -METO-411 PO; +METO25TA6 PO
[2020-06-30 08:58] LABS: HEMATOCRIT 31.8 % (42.0-52.0); HEMOGLOBIN 10.4 g/dl (14.0-17.9); RED BLOOD COUNT 3.83 X10'6 (4.70-6.10); WHITE BLOOD COUNT 6.8 X10'3 (4.5-11.0)
[2020-06-30 08:59] LABS: BASOPHILS % (AUTO) 0.5 % (0-1); EOSINOPHILS # (AUTO) 0.2 X10'3 (0-0.9); EOSINOPHILS % (AUTO) 2.5 % (0-6); LYMPHOCYTES # (AUTO) 0.5 X10'3 (1.1-4.8); LYMPHOCYTES % (AUTO) 7.4 % (21-51); MEAN CORPUSCULAR HEMOGLOBIN 27.2 PG (27.0-31.0); MEAN CORPUSCULAR HGB CONC 32.7 g/dL (33.0-36.5); MEAN PLATELET VOLUME 7.6 FL (7.4-10.4); MONOCYTES # (AUTO) 0.7 X10'3 (0-0.9); MONOCYTES % (AUTO) 10.8 % (2-12); NEUTROPHILS # (AUTO) 5.3 X10'3 (1.8-7.7); NEUTROPHILS % (AUTO) 78.8 % (42-75); PLATELET COUNT 198 X10'3 (140-440); RED CELL DISTRIBUTION WIDTH 16.6 % (11.5-14.5)
[2020-06-30] MEDS ORDERED: IODIXANOL 320 MG/ML 150ml INFUS..BTL IV ONE (09:00)
[2020-06-30 09:12] LABS: PARTIAL THROMBOPLASTIN TIME 28 SECONDS (22-32)
[2020-06-30 09:14] LABS: ALANINE AMINOTRANSFERASE 28 U/L (12-78); ALBUMIN 3.4 G/DL (3.4-5.0); ALBUMIN/GLOBULIN RATIO 1.1 (1.1-1.5); ALKALINE PHOSPHATASE 157 IU/L (46-116); ANION GAP 10 (8-16); ASPARTATE AMINO TRANSFERASE 28 U/L (10-37); BILIRUBIN,TOTAL 0.7 MG/DL (0.1-1.0); BLOOD UREA NITROGEN 10 MG/DL (7-18); BUN/CREATININE RATIO 14.3 (5.4-32.0); CALCIUM 8.7 MG/DL (8.5-10.1); CHLORIDE 106 MMOL/L (99-107); GLUCOSE 139 MG/DL (70-104); POTASSIUM 3.4 MMOL/L (3.5-5.1); SODIUM 142 MMOL/L (135-145); TOTAL CARBON DIOXIDE 26.5 MMOL/L (24-32); TOTAL PROTEIN 6.5 G/DL (6.4-8.2); eGFR > 90 ML/MIN
[2020-06-30 09:39] LABS: ABG BASE EXCESS 0.7 mmol/L (-2.0-2.0); ABG HCO3 24.5 mmol/L (22.0-26.0); ABG OXYGEN SATURATION 96.3 % (94-97); ABG PCO2 (T) 36.2 mmHg (35.0-48.0); ABG PO2 (T) 84.5 mmHg (75.0-100.0); ALLEN'S TEST POSITIVE; FMetHb 0.2 % (0.0-1.5); FO2Hb 95.1 % (94-97); TOTAL HEMOGLOBIN 11.5 G/dl (14.0-18.0)
[2020-06-30] MEDS ORDERED: albuterol 2.5 MG/3 ML nebule NEB ONE (09:45)
== END 2020-06-30 23:59 | disposition home or self-care (01) ==
LOC: RT 07:56
PROVIDERS: ATTEND Internal Medicine Cardiovascular Disease
DX: R91.1 Solitary pulmonary nodule (principal); J90 Pleural effusion, not elsewhere classified; N43.3 Hydrocele, unspecified; M16.0 Bilateral primary osteoarthritis of hip; M47.816 Spondylosis without myelopathy or radiculopathy, lumbar region; K86.89 Other specified diseases of pancreas; K76.89 Other specified diseases of liver; I70.8 Atherosclerosis of other arteries; I31.3 Pericardial effusion (noninflammatory); M48.54XA Collapsed vertebra, not elsewhere classified, thoracic region, initial encounter for fracture; I51.7 Cardiomegaly; I25.10 Atherosclerotic heart disease of native coronary artery without angina pectoris; J98.11 Atelectasis; R94.2 Abnormal results of pulmonary function studies; D64.9 Anemia, unspecified
CPT/HCPCS: 36415; 36600; 71046; 71275; 74174; 80053; 82803; 85018; 85025; 85610; 85730; 94060; 94727; 94729; 94760; Q9967

== ENCOUNTER 2020-07-17 17:10 | Emergency (ER) | payer MEDICARE ==
[~2020-07-17] VITALS: Ht 177.8 cm; Wt 185.0 kg
[~2020-07-17 17:10] MED LIST changes: +ACET-1025 PO; +LISI20TA28 PO; +LOP25T PO; +MELA3TAB41 PO; +METO1TAB12 PO; -METO25TA6 PO
[2020-07-17 17:34] VITALS: BP 152/103
--- NOTE | 2020-07-17 21:58 | NUR ---
pt was seen and dc'd by provider
== END 2020-07-17 22:01 | disposition home or self-care (01) ==
LOC: ER 17:11
DX: M25.461 Effusion, right knee (principal); M25.561 Pain in right knee; I82.409 Acute embolism and thrombosis of unspecified deep veins of unspecified lower extremity; I48.91 Unspecified atrial fibrillation; I25.10 Atherosclerotic heart disease of native coronary artery without angina pectoris; E78.00 Pure hypercholesterolemia, unspecified; I10 Essential (primary) hypertension; I25.2 Old myocardial infarction; K21.9 Gastro-esophageal reflux disease without esophagitis; E11.9 Type 2 diabetes mellitus without complications; Z87.01 Personal history of pneumonia (recurrent); Z85.9 Personal history of malignant neoplasm, unspecified; Z98.890 Other specified postprocedural states; Z79.899 Other long term (current) drug therapy
CPT/HCPCS: 73564; 93970; 99284

== ENCOUNTER 2020-09-07 10:15 | Emergency (ER) | payer MEDICARE ==
[~2020-09-07] VITALS: Ht 177.8 cm; Wt 90.0 kg
[~2020-09-07 10:15] MED LIST changes: -AMIT10TA6 PO; -HYDR-3964 PO; -LISI2.5T2 PO; -LOP25T PO; -MAGN400C PO; -MECL-159 PO; +METO100T7 PO; -METO1TAB12 PO; -NIAC500T44 PO; +POTA10TA36 PO; -RIBO100T6 PO
[2020-09-07] MEDS ORDERED: TETanus/Pertussis (Acell)/Diphther VAC/PF (Tdap-Adult) 0.5ml syringe IMVAC ONE (10:45)
[2020-09-07] MEDS ORDERED: LIDOcaine 1% W/epiNEPHrine 1:200,000 10ml vial IJ ONE (10:45)
--- NOTE | 2020-09-07 11:37 | NUR ---
BACK FROM CT. RIGHT FINGER WRAPPED W/ COBAN D/T BLEEDING. MARILEE BELTRE.
--- NOTE | 2020-09-07 11:40 | NUR ---
TRAUMA CALLED OFF BY MARILEE ZIMMERMAN
[2020-09-07 12:24] VITALS: BP 157/89
--- NOTE | 2020-09-07 12:36 | NUR ---
MARILEE ZIMMERMAN ENGAGED IN LAC REPAIR.
[2020-09-07] MEDS ORDERED: ONDA4TAB6 PO (13:03)
== END 2020-09-07 13:16 | disposition home or self-care (01) ==
LOC: ER 10:16
DX: S06.0X0A Concussion without loss of consciousness, initial encounter (principal); S61.210A Laceration without foreign body of right index finger without damage to nail, initial encounter; S00.03XA Contusion of scalp, initial encounter; I25.10 Atherosclerotic heart disease of native coronary artery without angina pectoris; I48.91 Unspecified atrial fibrillation; E78.00 Pure hypercholesterolemia, unspecified; E10.9 Type 1 diabetes mellitus without complications; I10 Essential (primary) hypertension; I25.2 Old myocardial infarction; Z87.01 Personal history of pneumonia (recurrent); Z85.9 Personal history of malignant neoplasm, unspecified; Z95.5 Presence of coronary angioplasty implant and graft; Z98.890 Other specified postprocedural states; Z79.01 Long term (current) use of anticoagulants; W01.0XXA Fall on same level from slipping, tripping and stumbling without subsequent striking against object, initial encounter; Y93.89 Activity, other specified; Y92.89 Other specified places as the place of occurrence of the external cause; Y99.8 Other external cause status
CPT/HCPCS: 12001; 70450; 73130; 90471; 90715; 99284

== ENCOUNTER 2020-10-28 07:22 | Day surgery (SDC) | payer MEDICARE ==
[~2020-10-28] VITALS: Ht 177.8 cm; Wt 80.2 kg
[~2020-10-28 07:22] MED LIST changes: +ALBU8.5H8 INH; +ALOG12.5 PO; -CLOP75TA34 PO; -FURO-150 PO; +FURO20TA4 PO; +LACT1CAP26 PO; -LINA5TAB4 PO; -METF-900 PO; +METF500T PO
[2020-10-28 07:44] VITALS: BP 166/101
[2020-10-28] MEDS ORDERED: albumin 25% 100mL bottle x 1 IV PRN (08:00)
[2020-10-28 09:50] VITALS: BP 166/101
== END 2020-10-28 09:50 | disposition home or self-care (01) ==
LOC: SSTAY O 07:22
PROVIDERS: ATTEND Radiology Diagnostic Radiology
DX: R18.8 Other ascites (principal); Z53.8 Procedure and treatment not carried out for other reasons; R14.0 Abdominal distension (gaseous); K74.60 Unspecified cirrhosis of liver; I11.0 Hypertensive heart disease with heart failure; I50.9 Heart failure, unspecified; I48.91 Unspecified atrial fibrillation; K21.9 Gastro-esophageal reflux disease without esophagitis; E11.9 Type 2 diabetes mellitus without complications; Z85.46 Personal history of malignant neoplasm of prostate; Z90.49 Acquired absence of other specified parts of digestive tract; Z98.890 Other specified postprocedural states; Z95.2 Presence of prosthetic heart valve; Z79.01 Long term (current) use of anticoagulants; Z79.84 Long term (current) use of oral hypoglycemic drugs; Z79.899 Other long term (current) drug therapy; Z87.891 Personal history of nicotine dependence; Z72.89 Other problems related to lifestyle; Z83.3 Family history of diabetes mellitus
CPT/HCPCS: 76705

== ENCOUNTER 2021-02-10 10:22 | Inpatient (IN) | payer MEDICARE ==
[~2021-02-10] VITALS: Ht 180.3 cm; Wt 74.0 kg
[~2021-02-10 10:22] MED LIST changes: -ALBU8.5H8 INH; -LACT1CAP26 PO; -POTA10TA36 PO
[2021-02-10 11:19] LABS: BASOPHILS % (AUTO) 0.4 % (0-1); EOSINOPHILS % (AUTO) 0.3 % (0-6); HEMATOCRIT 33.5 % (42.0-52.0); HEMOGLOBIN 11.2 g/dl (14.0-17.9); LYMPHOCYTES # (AUTO) 0.5 X10'3 (1.1-4.8); LYMPHOCYTES % (AUTO) 4.5 % (21-51); MEAN CORPUSCULAR HEMOGLOBIN 28.2 PG (27.0-31.0); MEAN CORPUSCULAR HGB CONC 33.5 g/dL (33.0-36.5); MEAN CORPUSCULAR VOLUME 84.2 FL (78-98); MEAN PLATELET VOLUME 8.9 FL (7.4-10.4); MONOCYTES # (AUTO) 0.8 X10'3 (0-0.9); MONOCYTES % (AUTO) 7.4 % (2-12); NEUTROPHILS # (AUTO) 9.2 X10'3 (1.8-7.7); NEUTROPHILS % (AUTO) 87.4 % (42-75); PLATELET COUNT 130 X10'3 (140-440); RED BLOOD COUNT 3.98 X10'6 (4.70-6.10); RED CELL DISTRIBUTION WIDTH 19.2 % (11.5-14.5); WHITE BLOOD COUNT 10.5 X10'3 (4.5-11.0)
[2021-02-10 11:39] LABS: ALANINE AMINOTRANSFERASE 43 U/L (12-78); ALBUMIN 3.2 G/DL (3.4-5.0); ALBUMIN/GLOBULIN RATIO 0.9 (1.1-1.5); ALKALINE PHOSPHATASE 221 IU/L (46-116); ANION GAP 9 (8-16); ASPARTATE AMINO TRANSFERASE 40 U/L (10-37); BILIRUBIN,TOTAL 1.5 MG/DL (0.1-1.0); BLOOD UREA NITROGEN 14 MG/DL (7-18); BUN/CREATININE RATIO 18.9 (5.4-32.0); CALCIUM 8.9 MG/DL (8.5-10.1); CHLORIDE 104 MMOL/L (99-107); CREATININE 0.74 MG/DL (0.60-1.10); GLUCOSE 189 MG/DL (70-104); POTASSIUM 4.8 MMOL/L (3.5-5.1); SODIUM 139 MMOL/L (135-145); TOTAL CARBON DIOXIDE 26.3 MMOL/L (24-32); TOTAL PROTEIN 6.7 G/DL (6.4-8.2); eGFR > 90 ML/MIN
[2021-02-10 12:08] LABS: ANISOCYTOSIS 2+; PLATELET ESTIMATE DECREASED
[2021-02-10 12:09] LABS: ACANTHOCYTES 1+; BURR CELLS 2+; ELLIPTOCYTES FEW
[2021-02-10] MEDS ORDERED: HYDROcodone/acetaminophen 5mg/325mg tablet PO ONE (12:50)
[2021-02-10 14:03] LABS: CLARITY,URINE CLEAR (Clear); COLOR,URINE YELLOW (Yellow); UA COLLECTION TYPE CLN CATCH MIDSTREAM
[2021-02-10 14:04] LABS: GLUCOSE, URINE NEGATIVE (Neg); KETONES,URINE TRACE mg/dl (Neg); LEUKOCYTE ESTERASE ,URINE NEGATIVE (Neg); NITRITES, URINE NEGATIVE (Neg); OCCULT BLOOD,URINE NEGATIVE (Neg); PROTEIN,URINE TRACE mg/dl (Neg); UROBILINOGEN,URINE 0.2 E.U/dL (0.2-1.0)
[2021-02-10 14:11] LABS: BACTERIA,URINE 1+ /HPF (Neg); MUCUS STRANDS NONE SEEN /LPF (Neg); RBC,URINE 0-2 /HPF (0-2); SQUAMOUS EPITHELIAL CELL,UR FEW /LPF (FEW); WBC,URINE 0-4 /HPF (0-4)
[2021-02-10 14:12] LABS: COARSE GRANULAR CAST 0-3 /LPF (NEGATIVE)
[2021-02-10] MEDS ORDERED: celeCOXIB 100mg capsule PO ONE (20:35)
--- NOTE | 2021-02-10 21:01 | NUR ---
Bruno [phone]
[2021-02-10] MEDS: morphine 2 MG/ML inj. syringe IV PRN (21:28)
[2021-02-10] MEDS ORDERED: ACET-3068 PO (21:56)
[2021-02-10] MEDS ORDERED: CELE-193 PO (21:56)
--- NOTE | 2021-02-10 23:07 | NUR ---
Road Test: Pt's left lower back pain was 3/10 laying down. Upon standing, pain was 10/10. Ambulation was difficult and shuffling.
[2021-02-11] MEDS ORDERED: diazepam 5mg tablet PO ONE (02:45)
--- NOTE | 2021-02-11 03:18 | NUR ---
pt still has severe back pain with movement. pt was given valium dose for muscle spasm
[2021-02-11] MEDS ORDERED: acetaminophen 325mg tablet PO ONE (06:10)
[2021-02-11] MEDS ORDERED: orphenadrine citrate 60mg/2ml inj. IM ONE (06:10)
[2021-02-11] MEDS ORDERED: fentaNYL/PF 50MCG/1 ML 2ML syringe IV ONE (06:10)
[2021-02-11] MEDS ORDERED: magnesium 2GM in 50ml NS 50 ML IV ONE (06:10)
[2021-02-11] MEDS ORDERED: aspirin 325mg tablet PO ONE (06:25)
[2021-02-11] MEDS ORDERED: LIDOcaine 1% 30ml preserv. free vial ONE (08:00)
--- NOTE | 2021-02-11 09:09 | NUR ---
ATTEMPTED TO GAIT TEST PT AFTER BEING MEDICATED FOR PAIN WITH THE ASSISTANCE OF DR COY. PT WAS ABLE TO SIT ON EDGE OF BED WITH ASSISTANCE BUT WAS UNABLE TO FULLY JOSE ALFREDO AT BEDSIDE. PT WAS ASSISTED BACK INTO BED
--- NOTE | 2021-02-11 10:15 | NUR ---
DR. FUNK AT BEDSIDE. ORDERED: BLADDER SCAN AND IF URINARY RETENTION PLACE A RANDHAWA CATHETER.
--- NOTE | 2021-02-11 10:53 | NUR ---
FLORIDALMA FROM [employer]ICIENC[employer] SUPERVISOR CALLED FOR PT STATUS UPDATE, WILL BE DOWN LATER THIS AM TO MEET WITH PT
[2021-02-11] MEDS ORDERED: FURO80TA3 PO (12:25)
[2021-02-11] MEDS ORDERED: LINA5TAB4 PO (12:33)
[2021-02-11] MEDS ORDERED: FURO20TA4 PO (12:33)
[2021-02-11] MEDS ORDERED: APIX5TAB3 PO (12:33)
[2021-02-11] MEDS ORDERED: ALOG12.5 PO (12:53)
[2021-02-11] MEDS ORDERED: METF-900 PO (12:55)
[2021-02-11] MEDS: morphine 2 MG/ML inj. syringe IV PRN ×2 (13:48→15:44)
[2021-02-11] MEDS ORDERED: glucagon, human recombinant 1mg kit SUBCUT PRN (16:25)
[2021-02-11] MEDS ORDERED: ondansetron/PF 4mg/2ml inj IV PRN (16:25)
[2021-02-11] MEDS ORDERED: acetaminophen 325mg tablet PO PRN ×2 (16:25)
[2021-02-11] MEDS ORDERED: dextrose 50%-water 50ml dispensing syringe IV PRN ×2 (16:25)
[2021-02-11] MEDS ORDERED: dextrose ORAL solution 15 GM/59 ML bottle PO PRN ×2 (16:25)
[2021-02-11] MEDS ORDERED: MESSAGE TO PHARMACY PO ONE (16:25)
[2021-02-11] MEDS ORDERED: morphine 2 MG/ML inj. syringe IV PRN (16:25)
[2021-02-11] MEDS ORDERED: mag hydrox/Alum hydrox/simeth 30ml oral suspension PO PRN (16:25)
[2021-02-11] MEDS ORDERED: nitroGLYCERIN 0.4mg SUBLingual tab SL PRN (16:30)
[2021-02-11 17:08] LABS: HEMOGLOBIN A1C 8.2 % (4.5-6.2)
[2021-02-11] MEDS: Melatonin 3mg tablet PO SCH (22:28)
[2021-02-11] MEDS: docusate sod 100mg capsule PO SCH (22:29)
[2021-02-11] MEDS: metoprolol succinate 25mg (24-HOUR) SR. Tablet PO SCH (22:29)
[2021-02-11] MEDS: furosemide 20 MG/2 ML vial IV SCH (22:31)
[2021-02-11] MEDS: apixaban 5mg tablet PO SCH (22:31)
[2021-02-11] MEDS: pyridostigmine br 60mg tablet PO SCH (22:32)
[2021-02-11] MEDS: beta-carotene(A) w/C & E + minerals tab PO SCH (22:33)
[2021-02-11] MEDS: insulin Lispro (HumaLOG) vial - multi-dose SQ SCH (23:15)
[2021-02-11] MEDS: insulin glargine (Lantus) pen - multi-dose SQ SCH (23:17)
[2021-02-12 01:26] LABS: BASOPHILS % (AUTO) 0.2 % (0-1); EOSINOPHILS % (AUTO) 0.1 % (0-6); HEMATOCRIT 28.2 % (42.0-52.0); HEMOGLOBIN 9.6 g/dl (14.0-17.9); LYMPHOCYTES # (AUTO) 0.4 X10'3 (1.1-4.8); LYMPHOCYTES % (AUTO) 2.9 % (21-51); MEAN CORPUSCULAR HEMOGLOBIN 27.8 PG (27.0-31.0); MEAN CORPUSCULAR HGB CONC 34.1 g/dL (33.0-36.5); MEAN CORPUSCULAR VOLUME 81.6 FL (78-98); MEAN PLATELET VOLUME 8.3 FL (7.4-10.4); MONOCYTES # (AUTO) 0.5 X10'3 (0-0.9); MONOCYTES % (AUTO) 4.4 % (2-12); NEUTROPHILS # (AUTO) 11.2 X10'3 (1.8-7.7); NEUTROPHILS % (AUTO) 92.4 % (42-75); PLATELET COUNT 150 X10'3 (140-440); RED BLOOD COUNT 3.46 X10'6 (4.70-6.10); RED CELL DISTRIBUTION WIDTH 18.5 % (11.5-14.5); WHITE BLOOD COUNT 12.1 X10'3 (4.5-11.0)
[2021-02-12 01:37] LABS: ALBUMIN 2.5 G/DL (3.4-5.0); ANION GAP 11 (8-16); BLOOD UREA NITROGEN 16 MG/DL (7-18); BUN/CREATININE RATIO 20.8 (5.4-32.0); CALCIUM 7.9 MG/DL (8.5-10.1); CHLORIDE 103 MMOL/L (99-107); CREATININE 0.77 MG/DL (0.60-1.10); GLUCOSE 188 MG/DL (70-104); POTASSIUM 3.8 MMOL/L (3.5-5.1); SODIUM 136 MMOL/L (135-145); TOTAL CARBON DIOXIDE 22.4 MMOL/L (24-32); eGFR > 90 ML/MIN
[2021-02-12] MEDS: morphine 2 MG/ML inj. syringe IV PRN ×2 (03:33→19:50)
[2021-02-12 04:04] VITALS: BP 104/57
[2021-02-12] MEDS: beta-carotene(A) w/C & E + minerals tab PO SCH ×2 (08:00→20:52)
[2021-02-12] MEDS: atorvastatin 20mg tablet PO SCH (08:29)
[2021-02-12] MEDS: apixaban 5mg tablet PO SCH ×2 (08:33→19:49)
[2021-02-12] MEDS: lisinopril 5mg tablet PO SCH (08:33)
[2021-02-12] MEDS: pyridostigmine br 60mg tablet PO SCH ×3 (08:33→19:48)
[2021-02-12] MEDS: furosemide 20 MG/2 ML vial IV SCH ×2 (08:33→19:48)
[2021-02-12] MEDS: docusate sod 100mg capsule PO SCH ×2 (08:33→19:49)
[2021-02-12] MEDS: pantoprazole 40mg Tablet.DR PO SCH (08:33)
[2021-02-12] MEDS: HYDROcodone/acetaminophen 5mg/325mg tablet PO PRN ×3 (09:23→20:52)
[2021-02-12] MEDS: baclofen 10mg tablet PO SCH ×2 (13:32→16:00)
[2021-02-12] MEDS: metoprolol succinate 25mg (24-HOUR) SR. Tablet PO SCH (19:48)
[2021-02-12] MEDS: Melatonin 3mg tablet PO SCH (19:49)
[2021-02-12 20:00] VITALS: BP 123/69
[2021-02-12] MEDS: insulin glargine (Lantus) pen - multi-dose SQ SCH (21:00)
[2021-02-13] VITALS: BP 118/58
[2021-02-13] MEDS: baclofen 10mg tablet PO SCH ×3 (00:27→16:00)
[2021-02-13] MEDS: morphine 2 MG/ML inj. syringe IV PRN ×2 (00:28→07:34)
[2021-02-13 06:24] LABS: BASOPHILS % (AUTO) 0.2 % (0-1); EOSINOPHILS # (AUTO) 0.1 X10'3 (0-0.9); EOSINOPHILS % (AUTO) 0.5 % (0-6); HEMATOCRIT 28.8 % (42.0-52.0); LYMPHOCYTES # (AUTO) 0.5 X10'3 (1.1-4.8); LYMPHOCYTES % (AUTO) 4.5 % (21-51); MEAN CORPUSCULAR HEMOGLOBIN 28.2 PG (27.0-31.0); MEAN CORPUSCULAR HGB CONC 34.7 g/dL (33.0-36.5); MEAN CORPUSCULAR VOLUME 81.1 FL (78-98); MEAN PLATELET VOLUME 8.3 FL (7.4-10.4); MONOCYTES # (AUTO) 0.6 X10'3 (0-0.9); MONOCYTES % (AUTO) 5.4 % (2-12); NEUTROPHILS # (AUTO) 9.1 X10'3 (1.8-7.7); NEUTROPHILS % (AUTO) 89.4 % (42-75); PLATELET COUNT 203 X10'3 (140-440); RED BLOOD COUNT 3.55 X10'6 (4.70-6.10); RED CELL DISTRIBUTION WIDTH 18.8 % (11.5-14.5); WHITE BLOOD COUNT 10.2 X10'3 (4.5-11.0)
[2021-02-13 06:32] LABS: ALBUMIN 2.5 G/DL (3.4-5.0); ANION GAP 8 (8-16); BLOOD UREA NITROGEN 18 MG/DL (7-18); BUN/CREATININE RATIO 24.3 (5.4-32.0); CALCIUM 8.2 MG/DL (8.5-10.1); CHLORIDE 104 MMOL/L (99-107); CREATININE 0.74 MG/DL (0.60-1.10); GLUCOSE 125 MG/DL (70-104); POTASSIUM 4.1 MMOL/L (3.5-5.1); SODIUM 136 MMOL/L (135-145); TOTAL CARBON DIOXIDE 23.9 MMOL/L (24-32); eGFR > 90 ML/MIN
[2021-02-13 07:06] LABS: PLATELET ESTIMATE NORMAL
[2021-02-13 07:07] LABS: ACANTHOCYTES 1+; ANISOCYTOSIS 2+; ROULEAUX 1+; SCHISTOCYTES FEW
[2021-02-13] MEDS: furosemide 20 MG/2 ML vial IV SCH ×2 (07:32→21:00)
[2021-02-13] MEDS: docusate sod 100mg capsule PO SCH ×2 (07:32→21:01)
[2021-02-13] MEDS: apixaban 5mg tablet PO SCH ×2 (07:32→21:01)
[2021-02-13] MEDS: lisinopril 5mg tablet PO SCH (07:33)
[2021-02-13] MEDS: atorvastatin 20mg tablet PO SCH (07:33)
[2021-02-13] MEDS: pantoprazole 40mg Tablet.DR PO SCH (07:33)
[2021-02-13] MEDS: beta-carotene(A) w/C & E + minerals tab PO SCH ×2 (07:33→21:02)
[2021-02-13] MEDS: pyridostigmine br 60mg tablet PO SCH ×3 (07:33→21:02)
[2021-02-13 09:41] LABS: C-REACTIVE PROTEIN 12.23 MG/DL (0.0-0.5)
--- NOTE | 2021-02-13 12:20 | NUR ---
Primary nurse Hugo reported axillary temp 102F, low O2 sat room air was 73. Unable to verify reading with another pulse oximeter on the other finger, no tachypnea noted, not in distress. Rapid response team was called due to low O2 on room air, shaking, temp 102F. LEARNING DISABILITIES TEACHER Nicol and a Respiratory therapist came to reassess the patient. Patient was placed on O2@ 3lpm/nc initially then 8lpm/nc. Dr. Lopez came to the room also to see what's going on. EKG done seen by Dr. Lopez - no new order from Dr. Lopez. Patient got stabilized after a few minutes, O2 sat was 96% @ 2lpm/nc.
[2021-02-13 20:00] VITALS: BP 117/68
[2021-02-13] MEDS: metoprolol succinate 25mg (24-HOUR) SR. Tablet PO SCH (21:00)
[2021-02-13] MEDS: methylPREDNISolone sod succ 125mg/2ml vial IV SCH (21:01)
[2021-02-13] MEDS: Melatonin 3mg tablet PO SCH (21:02)
[2021-02-13] MEDS: HYDROcodone/acetaminophen 5mg/325mg tablet PO PRN (21:03)
[2021-02-13] MEDS: insulin glargine (Lantus) pen - multi-dose SQ SCH (21:19)
[2021-02-14] VITALS: BP 99/61
--- NOTE | 2021-02-14 06:23 | NUR ---
Problems reprioritized. Patient report given, questions answered & plan of care reviewed with ROBBIE Britt .
[2021-02-14 06:50] LABS: BASOPHILS % (AUTO) 0.1 % (0-1); EOSINOPHILS % (AUTO) 0 % (0-6); HEMATOCRIT 36.6 % (42.0-52.0); HEMOGLOBIN 12.3 g/dl (14.0-17.9); LYMPHOCYTES # (AUTO) 0.3 X10'3 (1.1-4.8); LYMPHOCYTES % (AUTO) 3.3 % (21-51); MEAN CORPUSCULAR HEMOGLOBIN 27.9 PG (27.0-31.0); MEAN CORPUSCULAR HGB CONC 33.6 g/dL (33.0-36.5); MEAN CORPUSCULAR VOLUME 82.9 FL (78-98); MEAN PLATELET VOLUME 7.9 FL (7.4-10.4); MONOCYTES # (AUTO) 0.2 X10'3 (0-0.9); MONOCYTES % (AUTO) 1.9 % (2-12); NEUTROPHILS # (AUTO) 7.7 X10'3 (1.8-7.7); NEUTROPHILS % (AUTO) 94.7 % (42-75); PLATELET COUNT 224 X10'3 (140-440); RED BLOOD COUNT 4.42 X10'6 (4.70-6.10); RED CELL DISTRIBUTION WIDTH 18.4 % (11.5-14.5); WHITE BLOOD COUNT 8.2 X10'3 (4.5-11.0)
[2021-02-14 06:54] LABS: ALBUMIN 2.6 G/DL (3.4-5.0); ANION GAP 11 (8-16); BLOOD UREA NITROGEN 20 MG/DL (7-18); BUN/CREATININE RATIO 27.4 (5.4-32.0); CALCIUM 8.5 MG/DL (8.5-10.1); CHLORIDE 106 MMOL/L (99-107); CREATININE 0.73 MG/DL (0.60-1.10); GLUCOSE 201 MG/DL (70-104); POTASSIUM 4.2 MMOL/L (3.5-5.1); SODIUM 143 MMOL/L (135-145); eGFR > 90 ML/MIN
[2021-02-14 07:00] VITALS: BP 137/81
[2021-02-14] MEDS: docusate sod 100mg capsule PO SCH ×2 (07:31→21:00)
[2021-02-14] MEDS: pyridostigmine br 60mg tablet PO SCH ×3 (07:31→21:01)
[2021-02-14] MEDS: methylPREDNISolone sod succ 125mg/2ml vial IV SCH ×2 (07:31→21:00)
[2021-02-14] MEDS: atorvastatin 20mg tablet PO SCH (07:31)
[2021-02-14] MEDS: furosemide 20 MG/2 ML vial IV SCH ×2 (07:31→20:58)
[2021-02-14] MEDS: lisinopril 5mg tablet PO SCH (07:32)
[2021-02-14] MEDS: beta-carotene(A) w/C & E + minerals tab PO SCH ×2 (07:32→21:00)
[2021-02-14] MEDS: baclofen 10mg tablet PO SCH ×4 (07:32→21:03)
[2021-02-14] MEDS: pantoprazole 40mg Tablet.DR PO SCH (07:32)
[2021-02-14] MEDS: apixaban 5mg tablet PO SCH ×2 (07:32→21:03)
[2021-02-14 12:57] VITALS: BP 116/69
--- NOTE | 2021-02-14 15:21 | NUR ---
pt states that he had an episode of crushing pain on his chest. dr will be notified for orders.
[2021-02-14] MEDS: magnesium hydroxide 30ml (MOM) UD suspension PO PRN (15:27)
[2021-02-14] MEDS: insulin Lispro (HumaLOG) vial - multi-dose SQ SCH ×2 (18:02→21:22)
--- NOTE | 2021-02-14 18:23 | NUR ---
Patient in room IZABEL 358. I have received report from LEVI VILLA RN and had the opportunity to ask questions and assume patient care. Addendum: 02/14/21 at 1824 by Irma Lai RN Amended: Links added.
[2021-02-14 19:50] VITALS: BP 103/48
[2021-02-14] MEDS: metoprolol succinate 25mg (24-HOUR) SR. Tablet PO SCH (21:01)
[2021-02-14] MEDS: Melatonin 3mg tablet PO SCH (21:01)
[2021-02-14] MEDS: insulin glargine (Lantus) pen - multi-dose SQ SCH (21:21)
--- NOTE | 2021-02-15 00:10 | NUR ---
continue to monitor pt vitals and encourage coughing and repositioned in bed.
[2021-02-15 00:15] VITALS: BP 137/81
[2021-02-15] MEDS: ceFAZolin/D5W- 1GM premix 50 ML IV SCH ×4 (01:12→23:52)
--- NOTE | 2021-02-15 01:29 | NUR ---
pt resting no s&s of distress and ivabx infusing did not get in from pharmacy earlier
--- NOTE | 2021-02-15 03:45 | NUR ---
PT AWOKE SWEATING ACCUCHECK DONE BLOOD SUGAR 297 AT THIS TIME. SKIN CARE PARTIAL BATH DONE AND COMPLETE LIEN CHANGE DONE ON PT.
--- NOTE | 2021-02-15 04:14 | NUR ---
PT NOW DOING BETTER DID NOT NEED PAIN MEDICATION FOR HIS BACK TAKING BACLOFEN. TALKED WITH PT HE SAID TAKE IT OUT ON RANDHAWA AND BALLOON DEFLATED NOTED INTACT AND REMOVED. DRY FLOW TOWEL AND URINAL POSITIONED IN PLACE FOR THE PT.
[2021-02-15 05:54] LABS: ALBUMIN 2.4 G/DL (3.4-5.0); ANION GAP 9 (8-16); BLOOD UREA NITROGEN 38 MG/DL (7-18); BUN/CREATININE RATIO 40.9 (5.4-32.0); CALCIUM 8.4 MG/DL (8.5-10.1); CHLORIDE 100 MMOL/L (99-107); CREATININE 0.93 MG/DL (0.60-1.10); GLUCOSE 310 MG/DL (70-104); POTASSIUM 4.4 MMOL/L (3.5-5.1); SODIUM 134 MMOL/L (135-145); TOTAL CARBON DIOXIDE 25.2 MMOL/L (24-32); eGFR 77 ML/MIN
[2021-02-15 06:05] LABS: BASOPHILS % (AUTO) 0.1 % (0-1); EOSINOPHILS % (AUTO) 0 % (0-6); HEMATOCRIT 30.7 % (42.0-52.0); HEMOGLOBIN 10.5 g/dl (14.0-17.9); LYMPHOCYTES # (AUTO) 0.3 X10'3 (1.1-4.8); LYMPHOCYTES % (AUTO) 3.3 % (21-51); MEAN CORPUSCULAR HEMOGLOBIN 27.8 PG (27.0-31.0); MEAN CORPUSCULAR HGB CONC 34.1 g/dL (33.0-36.5); MEAN CORPUSCULAR VOLUME 81.4 FL (78-98); MEAN PLATELET VOLUME 8.2 FL (7.4-10.4); MONOCYTES # (AUTO) 0.4 X10'3 (0-0.9); MONOCYTES % (AUTO) 3.5 % (2-12); NEUTROPHILS # (AUTO) 9.6 X10'3 (1.8-7.7); NEUTROPHILS % (AUTO) 93.1 % (42-75); PLATELET COUNT 255 X10'3 (140-440); RED BLOOD COUNT 3.77 X10'6 (4.70-6.10); RED CELL DISTRIBUTION WIDTH 18.1 % (11.5-14.5); WHITE BLOOD COUNT 10.3 X10'3 (4.5-11.0)
--- NOTE | 2021-02-15 06:19 | NUR ---
Problems reprioritized. Patient report given, questions answered & plan of care reviewed with WILMAR AVALOS. Addendum: 02/15/21 at 0619 by Irma Lai RN Amended: Links added.
--- NOTE | 2021-02-15 06:45 | NUR ---
Patient in room IZABEL 358B. I have received report from ROBBIE COLLINS and had the opportunity to ask questions and assume patient care.
[2021-02-15 07:00] VITALS: BP 136/77
[2021-02-15] MEDS: baclofen 10mg tablet PO SCH ×3 (07:38→23:53)
[2021-02-15] MEDS: docusate sod 100mg capsule PO SCH ×2 (07:39→20:24)
[2021-02-15] MEDS: beta-carotene(A) w/C & E + minerals tab PO SCH ×2 (07:39→20:20)
[2021-02-15] MEDS: pantoprazole 40mg Tablet.DR PO SCH (07:39)
[2021-02-15] MEDS: apixaban 5mg tablet PO SCH ×2 (07:40→20:20)
[2021-02-15] MEDS: pyridostigmine br 60mg tablet PO SCH ×3 (07:40→20:21)
[2021-02-15] MEDS: atorvastatin 20mg tablet PO SCH (07:40)
[2021-02-15] MEDS: lisinopril 5mg tablet PO SCH (07:41)
[2021-02-15] MEDS: HYDROcodone/acetaminophen 5mg/325mg tablet PO PRN ×2 (07:42→16:14)
[2021-02-15] MEDS: methylPREDNISolone sod succ 125mg/2ml vial IV SCH ×2 (07:45→20:24)
[2021-02-15] MEDS: furosemide 20 MG/2 ML vial IV SCH ×2 (07:50→20:24)
[2021-02-15] MEDS: insulin Lispro (HumaLOG) vial - multi-dose SQ SCH ×3 (10:09→20:23)
[2021-02-15 11:00] VITALS: BP 102/57
--- NOTE | 2021-02-15 11:10 | NUR ---
DM consult: Current A1C 8.2 which is appropriate for age. Diabetes education not indicated at this time, will continue to monitor. Addendum: 02/15/21 at [address] Amended: Links added.
[2021-02-15] MEDS: morphine 2 MG/ML inj. syringe IV PRN (13:02)
--- NOTE | 2021-02-15 13:06 | NUR ---
Patent complaint of chest pain non-radiating described as sharp. BP was 137/89, HR 88. Patient was hooked to oxygen @ 2lpm/nc at this time. Pain lasted for about 1 minute then went away immediately. Patient was given Morphine 2mg IV for pain. Patient was instructed to let us know if the chest pain happened again despite of Morphine given or its more intense.Patient verbalized understanding of instruction given to him.
--- NOTE | 2021-02-15 13:14 | NUR ---
Paged Dr. Lopez PAGER ID: [phone] MESSAGE: Surgical Carrie AVALOS ext [phone]. RE: Wade Najera was complaining of chest pain on and off described as sharp. BP was normal HR 88. I just gave him Morphine 2mg IV. He just had EKG 2 days ago shows afib. Do you want any further order? Addendum: 02/15/21 at 1320 by Carrie White RN No further order at this time per Dr. Lopez. However Dr. Lopez said we can do another EKG and troponin if the chest pain happen again.
--- NOTE | 2021-02-15 18:54 | NUR ---
Problems reprioritized. Patient report given, questions answered & plan of care reviewed with ROBBIE COLLINS.
[2021-02-15 19:00] VITALS: BP 103/62
[2021-02-15] MEDS: Melatonin 3mg tablet PO SCH (20:20)
[2021-02-15] MEDS: lactobacillus rhamnosus 10,000 MMU CELLS/CAPSULE PO SCH (20:25)
[2021-02-15] MEDS: metoprolol succinate 25mg (24-HOUR) SR. Tablet PO SCH (20:27)
[2021-02-15] MEDS: magnesium hydroxide 30ml (MOM) UD suspension PO PRN (20:38)
[2021-02-15] MEDS: insulin glargine (Lantus) pen - multi-dose SQ SCH (21:00)
--- NOTE | 2021-02-15 22:30 | NUR ---
PT BLOOD SUGAR DROPPED TO 58 AFTER GETTING HIS CARBS AND BLODD SUGAR COVERED A LEVEL 5. GLUCOSE SHOT GIVEN TO THE PT. PT SYPMTOMATIC HE WAS SWEATING WITH THIS DID NOT TELL NURSE TILL ASKED.
--- NOTE | 2021-02-15 22:50 | NUR ---
pt refused lantus due to blood sugar drop to 58 then now 104 after dex 4 given. pt then said he wanted a yogurt and one given to him. ate 100% of it.
[2021-02-15 23:46] VITALS: BP 98/54
--- NOTE | 2021-02-16 00:56 | NUR ---
resting eyes closed without changes at this time.
[2021-02-16 06:02] LABS: BASOPHILS % (AUTO) 0.1 % (0-1); EOSINOPHILS % (AUTO) 0 % (0-6); HEMATOCRIT 32.6 % (42.0-52.0); LYMPHOCYTES # (AUTO) 0.3 X10'3 (1.1-4.8); LYMPHOCYTES % (AUTO) 2.3 % (21-51); MEAN CORPUSCULAR HEMOGLOBIN 27.7 PG (27.0-31.0); MEAN CORPUSCULAR HGB CONC 33.9 g/dL (33.0-36.5); MEAN CORPUSCULAR VOLUME 81.9 FL (78-98); MONOCYTES # (AUTO) 0.5 X10'3 (0-0.9); NEUTROPHILS # (AUTO) 12.8 X10'3 (1.8-7.7); NEUTROPHILS % (AUTO) 93.6 % (42-75); PLATELET COUNT 249 X10'3 (140-440); RED BLOOD COUNT 3.98 X10'6 (4.70-6.10); WHITE BLOOD COUNT 13.6 X10'3 (4.5-11.0)
[2021-02-16 06:04] LABS: ALBUMIN 2.5 G/DL (3.4-5.0); ANION GAP 8 (8-16); BLOOD UREA NITROGEN 39 MG/DL (7-18); BUN/CREATININE RATIO 40.6 (5.4-32.0); CALCIUM 8.4 MG/DL (8.5-10.1); CHLORIDE 104 MMOL/L (99-107); CREATININE 0.96 MG/DL (0.60-1.10); GLUCOSE 140 MG/DL (70-104); POTASSIUM 4.5 MMOL/L (3.5-5.1); SODIUM 139 MMOL/L (135-145); TOTAL CARBON DIOXIDE 26.7 MMOL/L (24-32); eGFR 74 ML/MIN
--- NOTE | 2021-02-16 06:18 | NUR ---
Problems reprioritized. Patient report given, questions answered & plan of care reviewed with Jaswant Klein. Addendum: 02/16/21 at 0619 by Irma Lai RN Amended: Links added.
--- NOTE | 2021-02-16 06:36 | NUR ---
Patient in room IZABEL 358. I have received report from Irma AVALOS and had the opportunity to ask questions and assume patient care.
[2021-02-16 08:00] VITALS: BP 122/77
[2021-02-16] MEDS: baclofen 10mg tablet PO SCH ×3 (09:15→23:47)
[2021-02-16] MEDS: apixaban 5mg tablet PO SCH ×2 (09:15→19:23)
[2021-02-16] MEDS: pantoprazole 40mg Tablet.DR PO SCH (09:15)
[2021-02-16] MEDS: atorvastatin 20mg tablet PO SCH (09:16)
[2021-02-16] MEDS: lactobacillus rhamnosus 10,000 MMU CELLS/CAPSULE PO SCH ×2 (09:16→19:23)
[2021-02-16] MEDS: beta-carotene(A) w/C & E + minerals tab PO SCH ×2 (09:16→19:23)
[2021-02-16] MEDS: ceFAZolin/D5W- 1GM premix 50 ML IV SCH ×3 (09:17→23:50)
[2021-02-16] MEDS: pyridostigmine br 60mg tablet PO SCH ×3 (09:17→21:54)
[2021-02-16] MEDS: docusate sod 100mg capsule PO SCH ×2 (09:17→19:22)
[2021-02-16] MEDS: lisinopril 5mg tablet PO SCH (09:17)
[2021-02-16] MEDS: furosemide 20 MG/2 ML vial IV SCH ×2 (09:18→19:22)
[2021-02-16] MEDS: methylPREDNISolone sod succ 125mg/2ml vial IV SCH ×2 (09:18→19:24)
[2021-02-16] MEDS: magnesium hydroxide 30ml (MOM) UD suspension PO PRN (09:32)
[2021-02-16] MEDS: HYDROcodone/acetaminophen 5mg/325mg tablet PO PRN ×2 (09:32→13:42)
[2021-02-16] MEDS: insulin Lispro (HumaLOG) vial - multi-dose SQ SCH ×3 (09:40→19:24)
[2021-02-16 12:00] VITALS: BP 124/75
--- NOTE | 2021-02-16 12:30 | NUR ---
Patient in room IZABEL 358. I have received report from Jaswant and had the opportunity to ask questions and assume patient care.
[2021-02-16] MEDS: vancomycin/NS 1 GM ADD-VANTAGE 250 ML X 1 DOSE IV SCH (13:30)
--- NOTE | 2021-02-16 15:19 | NUR ---
Paged Dr. Garcia PAGER ID: [phone] MESSAGE: Lencho Butler RN ext [phone]. RE: Wade Najera. Patient complaint of numbness and tingling on left side of his mouth x 1 minute. No facial asymmetry, clear speech, no deficit. His calcium today 8.4.
--- NOTE | 2021-02-16 15:21 | NUR ---
Pt admitt w/ severe back pain and inability to ambulate per EMR. Pt currently on Heart heathy diet and Carb controled diet w/ ~100% PO intake meeting needs. LBM 02/16. No nutritional intervention implemented at this time. Will continue to monitor. Recs: 1. Continue heart health and carb controled diet. 2. Continue bowel care per rx. 3. Weekly wt. Addendum: 02/16/21 at [address] Amended: Links added. Addendum: 02/16/21 at [address] FRANCISCA mares
[2021-02-16] MEDS ORDERED: GADOTERATE MEGLUMINE 7.5 MMOL/15 ML VIAL IV ONE (15:59)
--- NOTE | 2021-02-16 16:39 | NUR ---
as clinical instructor, i reviewed student nurse documentation
--- NOTE | 2021-02-16 17:49 | NUR ---
Problems reprioritized. Patient report given, questions answered & plan of care reviewed with ROBBIE Michaud.
[2021-02-16 18:00] VITALS: BP 149/84
--- NOTE | 2021-02-16 18:01 | NUR ---
PAGER ID: [phone] MESSAGE: Jaswant Surg [phone] Re: Wade Najera 358b Patient c/o of transient chest pain a few minutes at a time. By the time vital taken no symptoms. Vital normal. two negative EKG in 3 days both - Thanks Jaswant.
--- NOTE | 2021-02-16 18:44 | NUR ---
Patient in room IZABEL 358B. I have received report from ROBBIE Michaud and had the opportunity to ask questions and assume patient care.
--- NOTE | 2021-02-16 18:46 | NUR ---
Problems reprioritized. Patient report given, questions answered & plan of care reviewed with Kym AVALOS.
[2021-02-16] MEDS: metoprolol succinate 25mg (24-HOUR) SR. Tablet PO SCH (21:00)
[2021-02-16] MEDS: insulin glargine (Lantus) pen - multi-dose SQ SCH (21:52)
[2021-02-16] MEDS: Melatonin 3mg tablet PO SCH (21:53)
[2021-02-17] VITALS: BP 92/55
[2021-02-17 05:58] LABS: BASOPHILS % (AUTO) 0.1 % (0-1); EOSINOPHILS % (AUTO) 0 % (0-6); HEMATOCRIT 31.1 % (42.0-52.0); HEMOGLOBIN 10.5 g/dl (14.0-17.9); LYMPHOCYTES # (AUTO) 0.5 X10'3 (1.1-4.8); LYMPHOCYTES % (AUTO) 3.8 % (21-51); MEAN CORPUSCULAR HEMOGLOBIN 27.7 PG (27.0-31.0); MEAN CORPUSCULAR HGB CONC 33.8 g/dL (33.0-36.5); MEAN CORPUSCULAR VOLUME 81.9 FL (78-98); MEAN PLATELET VOLUME 7.6 FL (7.4-10.4); MONOCYTES # (AUTO) 0.6 X10'3 (0-0.9); MONOCYTES % (AUTO) 5.1 % (2-12); NEUTROPHILS # (AUTO) 10.9 X10'3 (1.8-7.7); PLATELET COUNT 212 X10'3 (140-440); RED CELL DISTRIBUTION WIDTH 18.6 % (11.5-14.5)
[2021-02-17 06:17] LABS: ALANINE AMINOTRANSFERASE 44 U/L (12-78); ALBUMIN 2.5 G/DL (3.4-5.0); ALBUMIN/GLOBULIN RATIO 0.8 (1.1-1.5); ALKALINE PHOSPHATASE 164 IU/L (46-116); ANION GAP 9 (8-16); ASPARTATE AMINO TRANSFERASE 38 U/L (10-37); BILIRUBIN,TOTAL 0.7 MG/DL (0.1-1.0); BLOOD UREA NITROGEN 30 MG/DL (7-18); BUN/CREATININE RATIO 34.9 (5.4-32.0); C-REACTIVE PROTEIN 2.45 MG/DL (0.0-0.5); CALCIUM 8.3 MG/DL (8.5-10.1); CHLORIDE 107 MMOL/L (99-107); CREATININE 0.86 MG/DL (0.60-1.10); GLUCOSE 98 MG/DL (70-104); MAGNESIUM 2.6 MG/DL (1.5-2.4); POTASSIUM 4.3 MMOL/L (3.5-5.1); SODIUM 143 MMOL/L (135-145); TOTAL CARBON DIOXIDE 26.9 MMOL/L (24-32); TOTAL PROTEIN 5.7 G/DL (6.4-8.2); eGFR 84 ML/MIN
--- NOTE | 2021-02-17 06:32 | NUR ---
Patient in room IZABEL 358. I have received report from Kym AVALOS and had the opportunity to ask questions and assume patient care.
--- NOTE | 2021-02-17 06:42 | NUR ---
Student documentation: I have reviewed and agree with all interventions, assessments performed and documented by Vincent Student Nurse.
--- NOTE | 2021-02-17 06:42 | NUR ---
Problems reprioritized. Patient report given, questions answered & plan of care reviewed with ROBBIE Michaud.
[2021-02-17 07:23] LABS: ANISOCYTOSIS 2+; PLATELET ESTIMATE NORMAL
[2021-02-17 07:24] LABS: ACANTHOCYTES FEW; BURR CELLS FEW; ELLIPTOCYTES FEW; SCHISTOCYTES FEW
--- NOTE | 2021-02-17 07:36 | NUR ---
Patient in room IZABEL 358. I have received report from MINERVA AVALOS and had the opportunity to ask questions and assume patient care.
[2021-02-17 07:53] VITALS: BP 151/77
[2021-02-17] MEDS: ceFAZolin/D5W- 1GM premix 50 ML IV SCH ×2 (08:01→15:47)
[2021-02-17] MEDS: furosemide 20 MG/2 ML vial IV SCH ×2 (08:02→19:14)
[2021-02-17] MEDS: methylPREDNISolone sod succ 125mg/2ml vial IV SCH ×2 (08:08→19:14)
[2021-02-17] MEDS: docusate sod 100mg capsule PO SCH ×2 (08:25→19:13)
[2021-02-17] MEDS: baclofen 10mg tablet PO SCH ×2 (08:26→15:45)
[2021-02-17] MEDS: lactobacillus rhamnosus 10,000 MMU CELLS/CAPSULE PO SCH ×2 (08:26→19:14)
[2021-02-17] MEDS: atorvastatin 20mg tablet PO SCH (08:26)
[2021-02-17] MEDS: apixaban 5mg tablet PO SCH ×2 (08:26→19:15)
[2021-02-17] MEDS: pantoprazole 40mg Tablet.DR PO SCH (08:27)
[2021-02-17] MEDS: beta-carotene(A) w/C & E + minerals tab PO SCH ×2 (08:27→19:16)
[2021-02-17] MEDS: pyridostigmine br 60mg tablet PO SCH ×3 (08:27→21:38)
[2021-02-17] MEDS: lisinopril 5mg tablet PO SCH (08:28)
[2021-02-17] MEDS: HYDROcodone/acetaminophen 5mg/325mg tablet PO PRN ×2 (08:28→12:16)
[2021-02-17] MEDS: insulin Lispro (HumaLOG) vial - multi-dose SQ SCH ×3 (10:15→19:08)
[2021-02-17] MEDS: vancomycin/NS 1 GM ADD-VANTAGE 250 ML X 1 DOSE IV SCH (13:15)
[2021-02-17 14:11] VITALS: BP 125/77
--- NOTE | 2021-02-17 18:03 | NUR ---
Student documentation: I have reviewed and agree with all interventions, assessments performed and documented by CLAUDIA AMAYA.
--- NOTE | 2021-02-17 18:45 | NUR ---
Patient in room IZABEL 358B. I have received report from ROBBIE Michaud and had the opportunity to ask questions and assume patient care.
--- NOTE | 2021-02-17 18:55 | NUR ---
Problems reprioritized. Patient report given, questions answered & plan of care reviewed with Kym AVALOS.
[2021-02-17 20:00] VITALS: BP_SYST 120; BP_SYST 122; BP_DIAS 71; BP_DIAS 83
[2021-02-17] MEDS: Melatonin 3mg tablet PO SCH (21:37)
[2021-02-17] MEDS: metoprolol succinate 25mg (24-HOUR) SR. Tablet PO SCH (21:39)
[2021-02-17] MEDS: insulin glargine (Lantus) pen - multi-dose SQ SCH (21:43)
[2021-02-18] VITALS: BP 113/71
[2021-02-18] MEDS ORDERED: ceFAZolin/D5W- 1GM premix 50 ML IV SCH
[2021-02-18] MEDS: baclofen 10mg tablet PO SCH ×2 (00:43→09:25)
[2021-02-18] MEDS: cefazolin/dext.iso 2gm/50ml 50 ML IV SCH ×2 (00:43→10:30)
[2021-02-18 05:43] LABS: BASOPHILS % (AUTO) 0.1 % (0-1); EOSINOPHILS % (AUTO) 0 % (0-6); HEMATOCRIT 32.8 % (42.0-52.0); HEMOGLOBIN 10.7 g/dl (14.0-17.9); LYMPHOCYTES # (AUTO) 0.5 X10'3 (1.1-4.8); LYMPHOCYTES % (AUTO) 3.8 % (21-51); MEAN CORPUSCULAR HEMOGLOBIN 27.2 PG (27.0-31.0); MEAN CORPUSCULAR HGB CONC 32.7 g/dL (33.0-36.5); MEAN CORPUSCULAR VOLUME 83.3 FL (78-98); MEAN PLATELET VOLUME 7.7 FL (7.4-10.4); MONOCYTES # (AUTO) 0.6 X10'3 (0-0.9); MONOCYTES % (AUTO) 4.4 % (2-12); NEUTROPHILS # (AUTO) 11.7 X10'3 (1.8-7.7); NEUTROPHILS % (AUTO) 91.7 % (42-75); PLATELET COUNT 193 X10'3 (140-440); RED BLOOD COUNT 3.93 X10'6 (4.70-6.10); RED CELL DISTRIBUTION WIDTH 18.4 % (11.5-14.5); WHITE BLOOD COUNT 12.8 X10'3 (4.5-11.0)
[2021-02-18 06:31] LABS: ALANINE AMINOTRANSFERASE 49 U/L (12-78); ALBUMIN 2.4 G/DL (3.4-5.0); ALBUMIN/GLOBULIN RATIO 0.7 (1.1-1.5); ALKALINE PHOSPHATASE 158 IU/L (46-116); ANION GAP 6 (8-16); ASPARTATE AMINO TRANSFERASE 41 U/L (10-37); BILIRUBIN,TOTAL 0.7 MG/DL (0.1-1.0); BLOOD UREA NITROGEN 27 MG/DL (7-18); C-REACTIVE PROTEIN 1.62 MG/DL (0.0-0.5); CALCIUM 8.3 MG/DL (8.5-10.1); CHLORIDE 108 MMOL/L (99-107); CREATININE 0.75 MG/DL (0.60-1.10); GLUCOSE 92 MG/DL (70-104); MAGNESIUM 2.5 MG/DL (1.5-2.4); PHOSPHORUS 3.3 MG/DL (2.3-4.5); POTASSIUM 4.3 MMOL/L (3.5-5.1); SODIUM 142 MMOL/L (135-145); TOTAL CARBON DIOXIDE 28.2 MMOL/L (24-32); TOTAL PROTEIN 5.7 G/DL (6.4-8.2); eGFR > 90 ML/MIN
--- NOTE | 2021-02-18 06:47 | NUR ---
Problems reprioritized. Patient report given, questions answered & plan of care reviewed with ROBBIE Smith.
[2021-02-18 07:26] VITALS: BP 141/82
[2021-02-18] MEDS: docusate sod 100mg capsule PO SCH (09:19)
[2021-02-18] MEDS: beta-carotene(A) w/C & E + minerals tab PO SCH (09:20)
[2021-02-18] MEDS: pantoprazole 40mg Tablet.DR PO SCH (09:21)
[2021-02-18] MEDS: atorvastatin 20mg tablet PO SCH (09:21)
[2021-02-18] MEDS: lactobacillus rhamnosus 10,000 MMU CELLS/CAPSULE PO SCH (09:22)
[2021-02-18] MEDS: pyridostigmine br 60mg tablet PO SCH ×2 (09:22→14:03)
[2021-02-18] MEDS: lisinopril 5mg tablet PO SCH (09:23)
[2021-02-18] MEDS: apixaban 5mg tablet PO SCH (09:24)
[2021-02-18] MEDS: HYDROcodone/acetaminophen 5mg/325mg tablet PO PRN (09:48)
[2021-02-18] MEDS: methylPREDNISolone sod succ 125mg/2ml vial IV SCH (09:49)
[2021-02-18] MEDS: furosemide 20 MG/2 ML vial IV SCH (09:54)
[2021-02-18] MEDS: insulin Lispro (HumaLOG) vial - multi-dose SQ SCH (10:16)
[2021-02-18 11:00] VITALS: BP 118/68
--- NOTE | 2021-02-18 13:34 | NUR ---
Problems reprioritized. Patient report given, questions answered & plan of care reviewed with Josette Klein at [facility].
--- NOTE | 2021-02-18 15:15 | NUR ---
Pt DC to [facility]. Pt is A & o x4, transported via ambulance. Report called to [facility] - jodie spoke to Josette and gave report. is at bedside, she took all belongings. Pt transported in his gown. Pt going to facility with 22G on left forearm, SL. Pt's glucose was not covered since it was too close to departure. Facility aware pt was not covered with insulin.
[2021-02-19] MEDS ORDERED: VANCOMYCIN LEVEL IV ONE (12:30)
== END 2021-02-18 15:05 | DRG 551 ==
LOC: ER 10:22 → ED HOLD 02-11 16:27 → SUR 3N 02-12 03:31
PROVIDERS: ADMIT Internal Medicine; ATTEND Internal Medicine
PROC: 3E0233Z Introduction of Anti-inflammatory into Muscle, Percutaneous Approach (ICD-10-PCS; principal; 2021-02-10)
PROC: 3E023BZ Introduction of Anesthetic Agent into Muscle, Percutaneous Approach (ICD-10-PCS; 2021-02-10)
DX: M48.061 Spinal stenosis, lumbar region without neurogenic claudication (principal); A40.9 Streptococcal sepsis, unspecified; E78.00 Pure hypercholesterolemia, unspecified; F17.290 Nicotine dependence, other tobacco product, uncomplicated; G70.00 Myasthenia gravis without (acute) exacerbation; G89.29 Other chronic pain; G96.191 Perineural cyst; I11.0 Hypertensive heart disease with heart failure; I25.10 Atherosclerotic heart disease of native coronary artery without angina pectoris; I27.20 Pulmonary hypertension, unspecified; I48.0 Paroxysmal atrial fibrillation; R07.89 Other chest pain; I50.813 Acute on chronic right heart failure; Z20.822 Contact with and (suspected) exposure to COVID-19; Z96.651 Presence of right artificial knee joint; E11.9 Type 2 diabetes mellitus without complications; K21.9 Gastro-esophageal reflux disease without esophagitis; M47.816 Spondylosis without myelopathy or radiculopathy, lumbar region; M48.07 Spinal stenosis, lumbosacral region; M51.26 Other intervertebral disc displacement, lumbar region; I25.2 Old myocardial infarction; Z79.899 Other long term (current) drug therapy; Z80.42 Family history of malignant neoplasm of prostate; Z83.3 Family history of diabetes mellitus; Z85.038 Personal history of other malignant neoplasm of large intestine; Z95.2 Presence of prosthetic heart valve; Z87.01 Personal history of pneumonia (recurrent); K04.7 Periapical abscess without sinus
CPT/HCPCS: 36415; 70450; 70551; 71045; 72128; 72131; 72148; 72149; 74176; 80048; 80053; 81001; 82948; 83036; 83605; 83735; 83880; 84100; 84145; 84484; 85008; 85025; 85651; 86140; 87040; 87077; 87081; 87186; 87635; 93005; 93306; 94799; 96365; 96366; 96372; 96375; 96376; 97110; 97116; 97161; 97530; 99285; A9575; G0378; J0690; J1815; J1940; J2001; J2270; J2360; J2930; J3010; J3370; J3475